=== PATIENT | female | born 1950 | race Caucasian/White ===

== ENCOUNTER 2016-11-10 02:20 | Inpatient (IN) | payer MEDICAID, MEDICARE ==
[~2016-11-10] VITALS: Ht 167.6 cm; Wt 64.9 kg
[2016-11-10] VITALS (27 sets, daily range): BP systolic 76–161; BP diastolic 37–104; PULSE 76–93; RESP 16–29; TEMP 96.7–97.9; O2SAT 91–98
[2016-11-10] MEDS ORDERED: NS 500 ML IV SCH (02:27)
[2016-11-10 02:52] LABS: HEMOGLOBIN 10.1 g/dL (12.0-16.0); RED CELL DISTRIBUTION WIDTH 21.4 % (9.0-15.0)
[2016-11-10 03:05] LABS: INR 1.1 (0.8-1.2); PROTHROMBIN TIME 11.9 SECS (9.5-12.5)
[2016-11-10 03:10] LABS: ALBUMIN 2.2 g/dL (3.4-4.8); CALCIUM 11.3 mg/dL (8.4-11.0); CREATININE 3.54 mg/dL (0.55-1.30); POTASSIUM 4.6 mmol/L (3.5-5.1); TOTAL BILIRUBIN 0.3 mg/dL (0.0-1.0); TOTAL PROTEIN, SERUM 8.7 g/dL (6.4-8.3)
[2016-11-10 03:15] LABS: HEMATOCRIT 35.5 % (36-48); MEAN CORPUSCULAR HEMOGLOBIN 27 pg (27-31); MEAN CORPUSCULAR HGB CONC 28 % (32-36); MEAN CORPUSCULAR VOLUME 97 fL (79.0-98.0); PLATELET COUNT (AUTO) 89 K/uL (130-430); RED BLOOD CELL COUNT(AUTO) 3.68 MIL/uL (4.2-6.2); WHITE BLOOD COUNT (AUTO) 23.5 K/uL (4.8-10.8)
[2016-11-10] MEDS ORDERED: NACL 0.9% 1,000 ML IV ONE ×3 (04:00→18:45)
[2016-11-10] MEDS ORDERED: INSULIN REGULAR, HUMAN 10 UNITS/0.1 ML INJ IVP ONE (04:00)
[2016-11-10 04:01] LABS: BILIRUBIN,URINE NEGATIVE (NEGATIVE); BLOOD, URINE NEGATIVE (NEGATIVE); CLARITY/URINE CLEAR (CLEAR); COLOR,URINE YELLOW (YELLOW); GLUCOSE,URINE 3+ (NEGATIVE); KETONES,URINE NEGATIVE (NEGATIVE); LEUKOCYTE ESTERASE ,URINE NEGATIVE (NEGATIVE); NITRITE, URINE NEGATIVE (NEGATIVE); PH,URINE 5.5 (5.0-8.0); PROTEIN URINE TRACE (NEGATIVE); UROBILINOGEN,URINE 0.2 (0.2-1.0)
[2016-11-10 04:07] LABS: BLOOD GAS PH 7.301 (7.350-7.450)
[2016-11-10 04:08] LABS: ABG TOTAL HEMOGLOBIN 9.9 G/dL (12.0-18.0); BLOOD GAS BASE EXCESS -3.3 mmol/L (-3.0-3.0); BLOOD GAS COHb% 0.5 % (0.5-1.5); BLOOD GAS HHB 7.1 % (0.0-6.0); BLOOD O2Hb% 92.2 % (94.0-97.0)
[2016-11-10] MEDS ORDERED: cefTRIAXone 1 GM IVPB PREMIX 50 ML IV ONE (04:15)
[2016-11-10 04:38] LABS: BAND % (MANUAL) 13 % (0-6); BASOPHILS % (MANUAL) 0 % (0-2); EOSINOPHILS % (MANUAL) 0 % (0-7); LYMPHOCYTES % (MANUAL) 3 % (20-46); MONOCYTES % (MANUAL) 1 % (0-11)
[2016-11-10 04:50] LABS: BACTERIA,URINE FEW /HPF (None Seen); RBC,URINE 0-3 /HPF (0-3)
[2016-11-10 04:51] LABS: MUCUS,URINE 1+ /LPF (None Seen); URINE AMORPHOUS URATE 1+ /HPF (None Seen)
[2016-11-10] MEDS ORDERED: DULR10 RC (05:02)
[2016-11-10] MEDS ORDERED: LORA-258 PO (05:02)
[2016-11-10] MEDS ORDERED: ZIN220 PO (05:02)
[2016-11-10] MEDS ORDERED: TYLL650 PO (05:02)
[2016-11-10] MEDS ORDERED: ASCO500S2 (05:02)
[2016-11-10] MEDS ORDERED: SYN75 PO ×2 (05:02)
[2016-11-10] MEDS ORDERED: CAT.1 PO (05:02)
[2016-11-10] MEDS ORDERED: [UNRECOGNIZED DRUG - CODE] PO (05:02)
[2016-11-10] MEDS ORDERED: SENN8.8S13 PO (05:02)
[2016-11-10] MEDS ORDERED: LACT1CAP7 PO (05:02)
[2016-11-10] MEDS ORDERED: NA P118E RC (05:02)
[2016-11-10] MEDS ORDERED: MAGN400O4 PO (05:02)
[2016-11-10] MEDS ORDERED: OMEP20CA10 PO (05:02)
[2016-11-10] MEDS ORDERED: ALBU2.5V7 INH ×2 (05:02)
[2016-11-10] MEDS ORDERED: D5W 1,000 ML IV ONE (06:00)
[2016-11-10] MEDS ORDERED: INSULIN REGULAR, HUMAN 100 UNITS in NS 99 ML IV PRN ×4 (07:00→10:45)
[2016-11-10 07:41] LABS: HEMATOCRIT 30.5 % (36-48); HEMOGLOBIN 9.2 g/dL (12.0-16.0); MEAN CORPUSCULAR VOLUME 97 fL (79.0-98.0); RED BLOOD CELL COUNT(AUTO) 3.14 MIL/uL (4.2-6.2); WHITE BLOOD COUNT (AUTO) 26.9 K/uL (4.8-10.8)
[2016-11-10 07:42] LABS: CALCIUM 10.4 mg/dL (8.4-11.0); CREATININE 3.15 mg/dL (0.55-1.30); MEAN CORPUSCULAR HEMOGLOBIN 29 pg (27-31); MEAN CORPUSCULAR HGB CONC 30 % (32-36)
[2016-11-10 07:43] LABS: TOTAL BILIRUBIN 0.2 mg/dL (0.0-1.0); TOTAL PROTEIN, SERUM 8.2 g/dL (6.4-8.3)
[2016-11-10] MEDS ORDERED: LEVOTHYROXINE SODIUM 0.075 MG TABLET GT ONE (07:45)
[2016-11-10] MEDS ORDERED: HEPARIN SODIUM,PORCINE 5000 UNITS/ML VIAL IVP ONE (08:00)
[2016-11-10] MEDS ORDERED: HEPARIN SODIUM,PORCINE 5000 UNITS/ML VIAL ONE (08:35)
[2016-11-10 08:40] LABS: BAND % (MANUAL) 3 % (0-6); BASOPHILS % (MANUAL) 0 % (0-2); EOSINOPHILS % (MANUAL) 0 % (0-7); LYMPHOCYTES % (MANUAL) 3 % (20-46); MONOCYTES % (MANUAL) 2 % (0-11)
[2016-11-10 08:43] LABS: PLATELET COUNT (AUTO) 120 K/uL (130-430)
[2016-11-10] MEDS: INSULIN REGULAR, HUMAN 100 UNITS in NS 99 ML IV PRN ×2 (09:00)
[2016-11-10] MEDS: LACTOBACILLUS RHAMNOSUS GG 1 CAP CAPSULE GT SCH ×2 (09:32→21:11)
[2016-11-10] MEDS: DOCUSATE SODIUM 100 MG/10 ML UDC GT SCH ×2 (09:32→21:11)
[2016-11-10] MEDS: PANTOPRAZOLE SODIUM 40 MG/VIAL (PROTONIX) IVP SCH (09:32)
[2016-11-10] MEDS: TEARS ARTIFICIAL 15 ML DROPS OP SCH ×4 (09:39→21:06)
[2016-11-10 10:24] LABS: INR 1.1 (0.8-1.2); PROTHROMBIN TIME 12.2 SECS (9.5-12.5)
[2016-11-10 11:18] LABS: CALCIUM 10.6 mg/dL (8.4-11.0); CREATININE 2.93 mg/dL (0.55-1.30); PHOSPHORUS 4.9 mg/dL (2.7-4.5); POTASSIUM 3.7 mmol/L (3.5-5.1)
[2016-11-10 11:24] LABS: ABG TOTAL HEMOGLOBIN 9.4 G/dL (12.0-18.0); BLOOD GAS BASE EXCESS -3.7 mmol/L (-3.0-3.0); BLOOD GAS PH 7.314 (7.350-7.450); BLOOD O2Hb% 90.8 % (94.0-97.0)
[2016-11-10 11:25] LABS: BLOOD GAS COHb% 0.8 % (0.5-1.5); BLOOD GAS HHB 8.2 % (0.0-6.0)
[2016-11-10] MEDS: ALBUTEROL SULFATE 0.083% 2.5 MG/3 ML VIAL.NEB INH SCH ×4 (11:50→23:28)
[2016-11-10] MEDS: 0.45% NACL 1,000 ML IV SCH ×3 (12:05→20:02)
[2016-11-10] MEDS: NOREPINEPHRINE BITARTRATE 4 MG in NS 246 ML IV PRN ×2 (15:00→22:03)
[2016-11-10] MEDS ORDERED: NOREPINEPHRINE 4 MG/4 ML VIAL IV ONE (15:21)
[2016-11-10 16:52] LABS: POTASSIUM 3.2 mmol/L (3.5-5.1)
[2016-11-10 17:13] LABS: CALCIUM 9.9 mg/dL (8.4-11.0); CREATININE 2.5 mg/dL (0.55-1.30); PHOSPHORUS 3.8 mg/dL (2.7-4.5)
[2016-11-10 18:23] LABS: ABG TOTAL HEMOGLOBIN 9.7 G/dL (12.0-18.0); BLOOD GAS PH 7.302 (7.350-7.450)
[2016-11-10 18:24] LABS: BLOOD GAS COHb% 0.4 % (0.5-1.5); BLOOD GAS HHB 10.8 % (0.0-6.0); BLOOD O2Hb% 88.4 % (94.0-97.0)
[2016-11-10] MEDS ORDERED: POTASSIUM CHLORIDE 40 MEQ in 0.45% NS 250 ML IV ONE (19:45)
[2016-11-10] MEDS ORDERED: KCL 40 mEq in 100 mL (PREMIX) 100 ML IV ONE (20:33)
[2016-11-10 23:40] LABS: CALCIUM 9.4 mg/dL (8.4-11.0); CREATININE 2.09 mg/dL (0.55-1.30); PHOSPHORUS 3.5 mg/dL (2.7-4.5); POTASSIUM 3.8 mmol/L (3.5-5.1)
[2016-11-11] VITALS (34 sets, daily range): BP systolic 84–159; BP diastolic 36–110; PULSE 79–104; RESP 20–27; TEMP 97.6–98.4; O2SAT 97–100
[2016-11-11] MEDS: 0.45% NACL 1,000 ML IV SCH ×3 (01:03→15:15)
[2016-11-11 03:04] LABS: CALCIUM 9.4 mg/dL (8.4-11.0); CREATININE 2.05 mg/dL (0.55-1.30); POTASSIUM 4.5 mmol/L (3.5-5.1)
[2016-11-11 03:07] LABS: ALBUMIN 1.8 g/dL (3.4-4.8); PHOSPHORUS 3.2 mg/dL (2.7-4.5); TOTAL BILIRUBIN 0.2 mg/dL (0.0-1.0); TOTAL PROTEIN, SERUM 6.9 g/dL (6.4-8.3)
[2016-11-11 03:33] LABS: FREE T4 (FREE THYROXINE) 0.5 ng/dL (0.6-1.6); THYROID STIMULATING HORMONE 2.21 uIu/mL (0.34-4.82)
[2016-11-11] MEDS: ALBUTEROL SULFATE 0.083% 2.5 MG/3 ML VIAL.NEB INH SCH ×6 (03:47→23:17)
[2016-11-11] MEDS: NOREPINEPHRINE BITARTRATE 4 MG in NS 246 ML IV PRN ×6 (04:27→22:48)
[2016-11-11] MEDS: LEVOTHYROXINE SODIUM 0.075 MG TABLET GT SCH (06:31)
[2016-11-11 06:46] LABS: CALCIUM 9.3 mg/dL (8.4-11.0); CREATININE 2.06 mg/dL (0.55-1.30); PHOSPHORUS 3.4 mg/dL (2.7-4.5); POTASSIUM 4.2 mmol/L (3.5-5.1)
[2016-11-11 07:00] LABS: HEMATOCRIT 29.3 % (36-48); HEMOGLOBIN 8.6 g/dL (12.0-16.0); MEAN CORPUSCULAR HEMOGLOBIN 28 pg (27-31); MEAN CORPUSCULAR HGB CONC 29 % (32-36); MEAN CORPUSCULAR VOLUME 95 fL (79.0-98.0); PLATELET COUNT (AUTO) 86 K/uL (130-430); RED BLOOD CELL COUNT(AUTO) 3.07 MIL/uL (4.2-6.2); RED CELL DISTRIBUTION WIDTH 19.6 % (9.0-15.0)
[2016-11-11 07:48] LABS: BLOOD GAS PH 7.305 (7.350-7.450)
[2016-11-11 07:50] LABS: BLOOD GAS BASE EXCESS -8.8 mmol/L (-3.0-3.0); BLOOD GAS COHb% 0.8 % (0.5-1.5); BLOOD GAS HHB 4.6 % (0.0-6.0); BLOOD O2Hb% 94.1 % (94.0-97.0)
[2016-11-11 08:01] LABS: BAND % (MANUAL) 15 % (0-6); BASOPHILS % (MANUAL) 0 % (0-2); EOSINOPHILS % (MANUAL) 0 % (0-7); LYMPHOCYTES % (MANUAL) 5 % (20-46); MONOCYTES % (MANUAL) 1 % (0-11)
[2016-11-11] MEDS: DOCUSATE SODIUM 100 MG/10 ML UDC GT SCH ×2 (09:00→21:31)
[2016-11-11] MEDS ORDERED: cefTRIAXone 1 GM IVPB PREMIX 50 ML IV SCH (09:00)
[2016-11-11] MEDS: TEARS ARTIFICIAL 15 ML DROPS OP SCH ×4 (09:01→21:32)
[2016-11-11] MEDS: PANTOPRAZOLE SODIUM 40 MG/VIAL (PROTONIX) IVP SCH (09:01)
[2016-11-11] MEDS: LACTOBACILLUS RHAMNOSUS GG 1 CAP CAPSULE GT SCH ×2 (09:01→21:32)
[2016-11-11] MEDS ORDERED: VANCOMYCIN HCL 750 MG in NS 250 ML IV SCH (11:15)
[2016-11-11] MEDS ORDERED: VANCOMYCIN HCL 1,000 MG in NS 250 ML IV ONE (12:00)
[2016-11-11] MEDS: PIPERACILLIN/TAZO 3.375/DEX-IS 50 ML IV SCH ×2 (12:11→17:08)
[2016-11-11] MEDS: FLUCONAZOLE 200 mg/ NS 100 ML IV SCH (12:19)
[2016-11-11 12:51] LABS: CALCIUM 9.1 mg/dL (8.4-11.0); CREATININE 1.86 mg/dL (0.55-1.30); PHOSPHORUS 3.3 mg/dL (2.7-4.5); POTASSIUM 4.2 mmol/L (3.5-5.1)
[2016-11-11] MEDS: metroNIDAZOLE 250 mg/NS 50 ML IV SCH ×2 (14:31→21:32)
[2016-11-11 18:26] LABS: CALCIUM 8.9 mg/dL (8.4-11.0); CREATININE 1.77 mg/dL (0.55-1.30); PHOSPHORUS 3.9 mg/dL (2.7-4.5); POTASSIUM 4.2 mmol/L (3.5-5.1)
[2016-11-12] VITALS (34 sets, daily range): BP systolic 81–143; BP diastolic 36–89; PULSE 72–105; RESP 11–25; TEMP 97.7–98.9; O2SAT 99–100; Ht 167.6 cm; Wt 64.9 kg
[2016-11-12] MEDS: PIPERACILLIN/TAZO 3.375/DEX-IS 50 ML IV SCH ×4 (00:09→17:49)
[2016-11-12] MEDS: NOREPINEPHRINE BITARTRATE 4 MG in NS 246 ML IV PRN ×4 (02:07→19:25)
[2016-11-12] MEDS: ALBUTEROL SULFATE 0.083% 2.5 MG/3 ML VIAL.NEB INH SCH ×6 (03:50→23:24)
[2016-11-12 04:31] LABS: CALCIUM 9.2 mg/dL (8.4-11.0); CREATININE 1.57 mg/dL (0.55-1.30); PHOSPHORUS 4.8 mg/dL (2.7-4.5); POTASSIUM 3.1 mmol/L (3.5-5.1)
[2016-11-12 04:54] LABS: BASOPHILS # (AUTO) 0.1 K/uL (0.0-0.2); BASOPHILS % (AUTO) 0.2 % (0.0-2.0); EOSINOPHILS # (AUTO) 0.1 K/uL (0.0-0.4); EOSINOPHILS % (AUTO) 0.3 % (0.0-4.0); HEMATOCRIT 25.4 % (36-48); HEMOGLOBIN 7.5 g/dL (12.0-16.0); LYMPHOCYTES % (AUTO) 3.5 % (20.5-51.5); MEAN CORPUSCULAR HEMOGLOBIN 28 pg (27-31); MEAN CORPUSCULAR HGB CONC 30 % (32-36); MEAN CORPUSCULAR VOLUME 94 fL (79.0-98.0); MONOCYTES # (AUTO) 0.1 K/uL (0.0-1.0); MONOCYTES % (AUTO) 0.3 % (1.7-9.3); NEUTROPHILS # (AUTO) 26.3 K/uL (1.8-7.7); NEUTROPHILS % (AUTO) 95.7 % (40.0-70.0); PLATELET COUNT (AUTO) 107 K/uL (130-430); RED BLOOD CELL COUNT(AUTO) 2.71 MIL/uL (4.2-6.2); RED CELL DISTRIBUTION WIDTH 18.9 % (9.0-15.0); WHITE BLOOD COUNT (AUTO) 27.6 K/uL (4.8-10.8)
[2016-11-12] MEDS: metroNIDAZOLE 250 mg/NS 50 ML IV SCH ×3 (05:08→22:00)
[2016-11-12] MEDS ORDERED: NOREPINEPHRINE 4 MG/4 ML VIAL IV ONE (05:50)
[2016-11-12] MEDS: LEVOTHYROXINE SODIUM 0.075 MG TABLET GT SCH (06:11)
[2016-11-12] MEDS: 0.45% NACL 1,000 ML IV SCH ×2 (07:00→09:38)
[2016-11-12 08:10] LABS: ABG TOTAL HEMOGLOBIN 7.6 G/dL (12.0-18.0); BLOOD GAS BASE EXCESS -10.9 mmol/L (-3.0-3.0)
[2016-11-12 08:11] LABS: BLOOD GAS COHb% 1.2 % (0.5-1.5); BLOOD GAS HHB 0.8 % (0.0-6.0); BLOOD O2Hb% 97.3 % (94.0-97.0)
[2016-11-12] MEDS: TEARS ARTIFICIAL 15 ML DROPS OP SCH ×4 (09:03→22:23)
[2016-11-12] MEDS: DOCUSATE SODIUM 100 MG/10 ML UDC GT SCH ×2 (09:03→21:00)
[2016-11-12] MEDS: LACTOBACILLUS RHAMNOSUS GG 1 CAP CAPSULE GT SCH ×2 (09:03→22:22)
[2016-11-12] MEDS: PANTOPRAZOLE SODIUM 40 MG/VIAL (PROTONIX) IVP SCH (09:04)
[2016-11-12] MEDS ORDERED: POTASSIUM CHLORIDE 20 MEQ TAB.PRT.SR GT ONE (09:30)
[2016-11-12] MEDS: ENOXAPARIN SODIUM 40 MG/0.4 ML SYRINGE SUBCUT SCH (10:20)
[2016-11-12] MEDS: FLUCONAZOLE 200 mg/ NS 100 ML IV SCH (11:13)
[2016-11-12 12:04] LABS: PHOSPHORUS 5.4 mg/dL (2.7-4.5)
[2016-11-12] MEDS: VANCOMYCIN HCL 500 MG in NS 100 ML IV SCH (12:34)
[2016-11-12] MEDS: INSULIN REGULAR, HUMAN 100 UNITS in NS 99 ML IV PRN ×4 (16:21→20:38)
[2016-11-12] MEDS ORDERED: INSULIN NPH 100 UNITS/ML 10 ML VIAL SUBCUT SCH (17:00)
[2016-11-12] MEDS ORDERED: POTASSIUM CHLORIDE 20 MEQ TAB.PRT.SR NG ONE (17:30)
[2016-11-12 19:52] LABS: PHOSPHORUS 5.6 mg/dL (2.7-4.5)
[2016-11-12] MEDS ORDERED: metroNIDAZOLE 500 mg/NS 100 ML IV ONE (22:50)
[2016-11-13] VITALS (38 sets, daily range): BP systolic 94–153; BP diastolic 44–81; PULSE 63–92; RESP 9–30; TEMP 97.2–98.4; O2SAT 97–100
[2016-11-13] MEDS: 0.45% NACL 1,000 ML IV SCH (00:13)
[2016-11-13] MEDS: NOREPINEPHRINE BITARTRATE 4 MG in NS 246 ML IV PRN ×4 (00:14→15:04)
[2016-11-13] MEDS: PIPERACILLIN/TAZO 3.375/DEX-IS 50 ML IV SCH ×2 (00:14→06:01)
[2016-11-13 03:36] LABS: CALCIUM 8.8 mg/dL (8.4-11.0); CREATININE 1.44 mg/dL (0.55-1.30); PHOSPHORUS 5.3 mg/dL (2.7-4.5)
[2016-11-13] MEDS: ALBUTEROL SULFATE 0.083% 2.5 MG/3 ML VIAL.NEB INH SCH ×6 (03:47→23:17)
[2016-11-13 03:50] LABS: POTASSIUM 2.5 mmol/L (3.5-5.1)
[2016-11-13] MEDS ORDERED: POTASSIUM CHLORIDE 40 MEQ in 0.45% NS 250 ML IV ONE ×2 (04:25→22:00)
[2016-11-13] MEDS ORDERED: 0.45% NACL 1,000 ML IV SCH (04:25)
[2016-11-13] MEDS ORDERED: POTASSIUM CHLORIDE 20 MEQ/PKT PACKET GT ONE ×2 (05:00→22:00)
[2016-11-13] MEDS ORDERED: KCL 40 mEq in 100 mL (PREMIX) 100 ML IV ONE ×4 (05:13→22:27)
[2016-11-13] MEDS: LEVOTHYROXINE SODIUM 0.075 MG TABLET GT SCH (05:58)
[2016-11-13] MEDS ORDERED: POTASSIUM CHLORIDE 20 MEQ TAB.PRT.SR ONE (06:02)
[2016-11-13 06:36] LABS: HEMATOCRIT 22.1 % (36-48); MEAN CORPUSCULAR HEMOGLOBIN 28 pg (27-31); MEAN CORPUSCULAR HGB CONC 30 % (32-36); MEAN CORPUSCULAR VOLUME 94 fL (79.0-98.0); PLATELET COUNT (AUTO) 80 K/uL (130-430); RED BLOOD CELL COUNT(AUTO) 2.36 MIL/uL (4.2-6.2); RED CELL DISTRIBUTION WIDTH 18.1 % (9.0-15.0); WHITE BLOOD COUNT (AUTO) 29.4 K/uL (4.8-10.8)
[2016-11-13 06:56] LABS: HEMOGLOBIN 6.7 g/dL (12.0-16.0)
[2016-11-13] MEDS ORDERED: INSULIN NPH 100 UNITS/ML 10 ML VIAL SUBCUT SCH (07:00)
[2016-11-13] MEDS: metroNIDAZOLE 250 mg/NS 50 ML IV SCH ×3 (07:47→21:02)
[2016-11-13] MEDS: INSULIN ASPART 100 UNITS/ML, 10 ML VIAL (NovoLOG) SUBCUT PRN ×4 (08:16→19:01)
[2016-11-13 08:27] LABS: ATYPICAL LYMPHOCYTES % 0 % (0-0); BAND % (MANUAL) 8 % (0-6); BASOPHILS % (MANUAL) 0 % (0-2); EOSINOPHILS % (MANUAL) 1 % (0-7); LYMPHOCYTES % (MANUAL) 3 % (20-46); MONOCYTES % (MANUAL) 1 % (0-11)
[2016-11-13 08:31] LABS: ABG TOTAL HEMOGLOBIN 6.6 G/dL (12.0-18.0); BLOOD GAS BASE EXCESS -12.6 mmol/L (-3.0-3.0); BLOOD GAS COHb% 1.1 % (0.5-1.5); BLOOD O2Hb% 96.2 % (94.0-97.0)
[2016-11-13 08:32] LABS: BLOOD GAS HHB 2.4 % (0.0-6.0)
[2016-11-13] MEDS: DOCUSATE SODIUM 100 MG/10 ML UDC GT SCH ×2 (09:00→20:54)
[2016-11-13] MEDS: BALSAM PERU/CASTOR OIL 60 GM OINT...G. TP SCH (09:00)
[2016-11-13] MEDS: PANTOPRAZOLE SODIUM 40 MG/VIAL (PROTONIX) IVP SCH (09:05)
[2016-11-13] MEDS: LACTOBACILLUS RHAMNOSUS GG 1 CAP CAPSULE GT SCH ×2 (09:05→20:54)
[2016-11-13] MEDS: ENOXAPARIN SODIUM 40 MG/0.4 ML SYRINGE SUBCUT SCH (09:05)
[2016-11-13] MEDS: TEARS ARTIFICIAL 15 ML DROPS OP SCH ×4 (09:07→21:02)
[2016-11-13] MEDS ORDERED: SODIUM BICARBONATE 8.4% JECT 50 MEQ/50 ML SYRINGE IVP ONE ×2 (11:00→15:15)
[2016-11-13] MEDS: FLUCONAZOLE 200 mg/ NS 100 ML IV SCH (11:22)
[2016-11-13 11:39] LABS: PHOSPHORUS 5.2 mg/dL (2.7-4.5); POTASSIUM 3.2 mmol/L (3.5-5.1)
[2016-11-13] MEDS: VANCOMYCIN HCL 500 MG in NS 100 ML IV SCH (12:26)
[2016-11-13] MEDS ORDERED: SODIUM BICARBONATE 8.4% JECT 50 MEQ/50 ML SYRINGE ONE (13:44)
[2016-11-13] MEDS ORDERED: SODIUM BICARBONATE 8.4% JECT 50 MEQ/50 ML SYRINGE IVP SCH (14:40)
[2016-11-13] MEDS ORDERED: D5W 100 ML IV ONE (16:00)
[2016-11-13] MEDS: INSULIN NPH 100 UNITS/ML 10 ML VIAL SUBCUT SCH (19:00)
[2016-11-13] MEDS: CEFEPIME 1 GM in D5W 50 ML IV SCH (21:01)
[2016-11-13 21:15] LABS: ANION GAP 11 (5-15); CALCIUM 8.4 mg/dL (8.4-11.0); CREATININE 1.26 mg/dL (0.55-1.30); GLUCOSE 213 mg/dL (70-99); PHOSPHORUS 4.2 mg/dL (2.7-4.5); UREA NITROGEN, BLOOD 59 mg/dL (8-21)
[2016-11-13 21:47] LABS: CHLORIDE 134 mmol/L (98-107); POTASSIUM 2.8 mmol/L (3.5-5.1); SODIUM SERUM 164 mmol/L (136-145)
[2016-11-13] MEDS: KCL 40 mEq in D5W 1000 mL 1,000 ML IV SCH (23:08)
[2016-11-14] VITALS (36 sets, daily range): BP systolic 76–233; BP diastolic 44–89; PULSE 63–96; RESP 6–28; TEMP 97–97.6; O2SAT 96–100
[2016-11-14] MEDS: INSULIN ASPART 100 UNITS/ML, 10 ML VIAL (NovoLOG) SUBCUT PRN ×7 (00:05→22:44)
[2016-11-14] MEDS: NOREPINEPHRINE BITARTRATE 4 MG in NS 246 ML IV PRN ×4 (03:28→20:31)
[2016-11-14] MEDS: ALBUTEROL SULFATE 0.083% 2.5 MG/3 ML VIAL.NEB INH SCH ×6 (03:43→22:26)
[2016-11-14] MEDS: KCL 40 mEq in D5W 1000 mL 1,000 ML IV SCH ×3 (06:11→18:00)
[2016-11-14] MEDS: LEVOTHYROXINE SODIUM 0.075 MG TABLET GT SCH (06:12)
[2016-11-14] MEDS: metroNIDAZOLE 250 mg/NS 50 ML IV SCH ×3 (06:12→22:02)
[2016-11-14] MEDS: INSULIN NPH 100 UNITS/ML 10 ML VIAL SUBCUT SCH ×2 (06:33→17:11)
[2016-11-14 06:47] LABS: BASOPHILS % (AUTO) 0.1 % (0.0-2.0); EOSINOPHILS # (AUTO) 0.2 K/uL (0.0-0.4); EOSINOPHILS % (AUTO) 1.1 % (0.0-4.0); HEMATOCRIT 30.1 % (36-48); HEMOGLOBIN 9.7 g/dL (12.0-16.0); LYMPHOCYTES # (AUTO) 0.5 K/uL (1.0-5.5); LYMPHOCYTES % (AUTO) 2.3 % (20.5-51.5); MEAN CORPUSCULAR HEMOGLOBIN 29 pg (27-31); MEAN CORPUSCULAR HGB CONC 32 % (32-36); MEAN CORPUSCULAR VOLUME 91 fL (79.0-98.0); MONOCYTES # (AUTO) 0.1 K/uL (0.0-1.0); MONOCYTES % (AUTO) 0.5 % (1.7-9.3); NEUTROPHILS # (AUTO) 19.2 K/uL (1.8-7.7); RED BLOOD CELL COUNT(AUTO) 3.32 MIL/uL (4.2-6.2); RED CELL DISTRIBUTION WIDTH 18.2 % (9.0-15.0)
[2016-11-14 07:07] LABS: PLATELET COUNT (AUTO) 41 K/uL (130-430)
[2016-11-14 07:22] LABS: CALCIUM 8.6 mg/dL (8.4-11.0); CREATININE 1.26 mg/dL (0.55-1.30); PHOSPHORUS 4.1 mg/dL (2.7-4.5); POTASSIUM 3.7 mmol/L (3.5-5.1)
[2016-11-14] MEDS: DOCUSATE SODIUM 100 MG/10 ML UDC GT SCH ×2 (09:00→20:10)
[2016-11-14] MEDS: BALSAM PERU/CASTOR OIL 60 GM OINT...G. TP SCH (09:00)
[2016-11-14] MEDS: LACTOBACILLUS RHAMNOSUS GG 1 CAP CAPSULE GT SCH ×2 (10:35→20:10)
[2016-11-14] MEDS: PANTOPRAZOLE SODIUM 40 MG/VIAL (PROTONIX) IVP SCH (10:36)
[2016-11-14] MEDS: TEARS ARTIFICIAL 15 ML DROPS OP SCH ×4 (10:36→20:11)
[2016-11-14] MEDS: CEFEPIME 1 GM in D5W 50 ML IV SCH ×2 (10:36→20:10)
[2016-11-14] MEDS: ENOXAPARIN SODIUM 40 MG/0.4 ML SYRINGE SUBCUT SCH (10:37)
[2016-11-14] MEDS: FLUCONAZOLE 200 mg/ NS 100 ML IV SCH (10:37)
[2016-11-14] MEDS: VANCOMYCIN HCL 500 MG in NS 100 ML IV SCH (12:58)
[2016-11-14 18:30] LABS: CALCIUM 8.6 mg/dL (8.4-11.0); CREATININE 1.14 mg/dL (0.55-1.30); PHOSPHORUS 3.8 mg/dL (2.7-4.5); POTASSIUM 3.9 mmol/L (3.5-5.1)
[2016-11-15] VITALS (36 sets, daily range): BP systolic 83–130; BP diastolic 21–78; PULSE 69–118; RESP 5–35; TEMP 97.9–99; O2SAT 93–100
[2016-11-15] MEDS: NOREPINEPHRINE BITARTRATE 4 MG in NS 246 ML IV PRN ×3 (02:00→14:15)
[2016-11-15] MEDS: ALBUTEROL SULFATE 0.083% 2.5 MG/3 ML VIAL.NEB INH SCH ×6 (02:54→23:49)
[2016-11-15] MEDS: INSULIN ASPART 100 UNITS/ML, 10 ML VIAL (NovoLOG) SUBCUT PRN ×4 (03:50→22:54)
[2016-11-15] MEDS: metroNIDAZOLE 250 mg/NS 50 ML IV SCH ×3 (06:07→21:54)
[2016-11-15] MEDS: LEVOTHYROXINE SODIUM 0.075 MG TABLET GT SCH (06:07)
[2016-11-15] MEDS: KCL 40 mEq in D5W 1000 mL 1,000 ML IV SCH ×2 (06:07→21:51)
[2016-11-15] MEDS: INSULIN NPH 100 UNITS/ML 10 ML VIAL SUBCUT SCH ×2 (06:13→17:00)
[2016-11-15 06:37] LABS: BASOPHILS # (AUTO) 0.1 K/uL (0.0-0.2); BASOPHILS % (AUTO) 0.3 % (0.0-2.0); EOSINOPHILS # (AUTO) 0.2 K/uL (0.0-0.4); EOSINOPHILS % (AUTO) 1.1 % (0.0-4.0); HEMATOCRIT 31.8 % (36-48); HEMOGLOBIN 10.4 g/dL (12.0-16.0); LYMPHOCYTES # (AUTO) 0.6 K/uL (1.0-5.5); MEAN CORPUSCULAR HEMOGLOBIN 30 pg (27-31); MEAN CORPUSCULAR HGB CONC 33 % (32-36); MEAN CORPUSCULAR VOLUME 91 fL (79.0-98.0); MONOCYTES # (AUTO) 0.1 K/uL (0.0-1.0); MONOCYTES % (AUTO) 0.4 % (1.7-9.3); NEUTROPHILS # (AUTO) 19.6 K/uL (1.8-7.7); NEUTROPHILS % (AUTO) 95.2 % (40.0-70.0); RED BLOOD CELL COUNT(AUTO) 3.48 MIL/uL (4.2-6.2); WHITE BLOOD COUNT (AUTO) 20.6 K/uL (4.8-10.8)
[2016-11-15 07:17] LABS: CALCIUM 8.6 mg/dL (8.4-11.0); CREATININE 1.13 mg/dL (0.55-1.30); POTASSIUM 4.4 mmol/L (3.5-5.1)
[2016-11-15 08:03] LABS: BLOOD GAS PH 7.343 (7.350-7.450)
[2016-11-15 08:04] LABS: ABG TOTAL HEMOGLOBIN 9.9 G/dL (12.0-18.0); BLOOD GAS BASE EXCESS -12.2 mmol/L (-3.0-3.0); BLOOD GAS COHb% 0.4 % (0.5-1.5); BLOOD GAS HHB 5.8 % (0.0-6.0); BLOOD O2Hb% 93.3 % (94.0-97.0)
[2016-11-15] MEDS ORDERED: NOREPINEPHRINE 4 MG/4 ML VIAL IV ONE (08:43)
[2016-11-15 09:02] LABS: PLATELET COUNT (AUTO) 41 K/uL (130-430)
[2016-11-15] MEDS: LACTOBACILLUS RHAMNOSUS GG 1 CAP CAPSULE GT SCH ×2 (09:15→21:52)
[2016-11-15] MEDS: DOCUSATE SODIUM 100 MG/10 ML UDC GT SCH ×2 (09:15→21:00)
[2016-11-15] MEDS: ENOXAPARIN SODIUM 40 MG/0.4 ML SYRINGE SUBCUT SCH (09:16)
[2016-11-15] MEDS: PANTOPRAZOLE SODIUM 40 MG/VIAL (PROTONIX) IVP SCH (09:16)
[2016-11-15] MEDS: CEFEPIME 1 GM in D5W 50 ML IV SCH ×2 (09:18→21:53)
[2016-11-15] MEDS: TEARS ARTIFICIAL 15 ML DROPS OP SCH ×4 (09:19→21:54)
[2016-11-15] MEDS: BALSAM PERU/CASTOR OIL 60 GM OINT...G. TP SCH (09:20)
[2016-11-15] MEDS: FLUCONAZOLE 200 mg/ NS 100 ML IV SCH (11:28)
[2016-11-15] MEDS: VANCOMYCIN HCL 500 MG in NS 100 ML IV SCH (12:33)
[2016-11-15] MEDS ORDERED: LORazepam 2 MG/ML VIAL IVP PRN (13:00)
[2016-11-15] MEDS ORDERED: MORPHINE 2 MG/ML INJ. SYRINGE IVP PRN (13:00)
[2016-11-15] MEDS ORDERED: SODIUM BICARBONATE 8.4% JECT 50 MEQ/50 ML SYRINGE ONE (13:10)
[2016-11-15] MEDS ORDERED: SODIUM BICARBONATE 8.4% JECT 50 MEQ/50 ML SYRINGE IVP ONE ×2 (13:15→14:00)
[2016-11-15] MEDS: SODIUM BICARBONATE 650 MG TABLET PO SCH ×2 (16:50→21:52)
[2016-11-16] VITALS (37 sets, daily range): BP systolic 88–141; BP diastolic 51–103; PULSE 75–100; RESP 5–17; TEMP 97.4–98.9; O2SAT 95–100
[2016-11-16] MEDS ORDERED: NOREPINEPHRINE 4 MG/4 ML VIAL IV ONE ×2 (00:37→06:08)
[2016-11-16] MEDS: NOREPINEPHRINE BITARTRATE 4 MG in NS 246 ML IV PRN ×4 (01:03→20:14)
[2016-11-16] MEDS: INSULIN ASPART 100 UNITS/ML, 10 ML VIAL (NovoLOG) SUBCUT PRN ×6 (02:51→23:53)
[2016-11-16] MEDS: ALBUTEROL SULFATE 0.083% 2.5 MG/3 ML VIAL.NEB INH SCH ×5 (02:57→23:28)
[2016-11-16] MEDS: LEVOTHYROXINE SODIUM 0.075 MG TABLET GT SCH (06:12)
[2016-11-16 06:28] LABS: CALCIUM 8.6 mg/dL (8.4-11.0); CREATININE 0.91 mg/dL (0.55-1.30); POTASSIUM 3.9 mmol/L (3.5-5.1)
[2016-11-16] MEDS: INSULIN NPH 100 UNITS/ML 10 ML VIAL SUBCUT SCH ×2 (06:34→17:02)
[2016-11-16] MEDS: metroNIDAZOLE 250 mg/NS 50 ML IV SCH ×3 (06:35→21:55)
[2016-11-16] MEDS: KCL 40 mEq in D5W 1000 mL 1,000 ML IV SCH ×2 (06:36→20:22)
[2016-11-16 06:47] LABS: INR 1.4 (0.8-1.2); PROTHROMBIN TIME 15.1 SECS (9.5-12.5)
[2016-11-16 07:11] LABS: HEMATOCRIT 27.4 % (36-48); MEAN CORPUSCULAR HEMOGLOBIN 30 pg (27-31); MEAN CORPUSCULAR HGB CONC 34 % (32-36); MEAN CORPUSCULAR VOLUME 89 fL (79.0-98.0); PLATELET COUNT (AUTO) 55 K/uL (130-430); RED BLOOD CELL COUNT(AUTO) 3.07 MIL/uL (4.2-6.2); RED CELL DISTRIBUTION WIDTH 18.7 % (9.0-15.0); WHITE BLOOD COUNT (AUTO) 19.2 K/uL (4.8-10.8)
[2016-11-16 07:25] LABS: HEMOGLOBIN 9.2 g/dL (12.0-16.0)
[2016-11-16] MEDS: LACTOBACILLUS RHAMNOSUS GG 1 CAP CAPSULE GT SCH ×2 (08:23→20:12)
[2016-11-16] MEDS: PANTOPRAZOLE SODIUM 40 MG/VIAL (PROTONIX) IVP SCH (08:24)
[2016-11-16] MEDS: CEFEPIME 1 GM in D5W 50 ML IV SCH ×2 (08:25→20:13)
[2016-11-16] MEDS: SODIUM BICARBONATE 650 MG TABLET PO SCH ×2 (08:25→20:12)
[2016-11-16] MEDS: ENOXAPARIN SODIUM 40 MG/0.4 ML SYRINGE SUBCUT SCH (08:25)
[2016-11-16] MEDS: TEARS ARTIFICIAL 15 ML DROPS OP SCH ×4 (08:26→20:19)
[2016-11-16] MEDS: DOCUSATE SODIUM 100 MG/10 ML UDC GT SCH ×2 (08:26→21:00)
[2016-11-16] MEDS: BALSAM PERU/CASTOR OIL 60 GM OINT...G. TP SCH (08:26)
[2016-11-16 10:18] LABS: ATYPICAL LYMPHOCYTES % 0 % (0-0); BAND % (MANUAL) 15 % (0-6); BASOPHILS % (MANUAL) 0 % (0-2); EOSINOPHILS % (MANUAL) 1 % (0-7); LYMPHOCYTES % (MANUAL) 4 % (20-46); MONOCYTES % (MANUAL) 0 % (0-11)
[2016-11-16 10:50] LABS: RETICULOCYTE COUNT 0.6 % (0.5-1.5)
[2016-11-16] MEDS: FLUCONAZOLE 200 mg/ NS 100 ML IV SCH (10:51)
[2016-11-16] MEDS: VANCOMYCIN HCL 500 MG in NS 100 ML IV SCH (11:13)
[2016-11-17] VITALS (35 sets, daily range): BP systolic 83–137; BP diastolic 50–83; PULSE 75–88; RESP 11–19; TEMP 97.2–98.4; O2SAT 98–100
[2016-11-17] MEDS: KCL 40 mEq in D5W 1000 mL 1,000 ML IV SCH ×3 (02:30→23:42)
[2016-11-17] MEDS: ALBUTEROL SULFATE 0.083% 2.5 MG/3 ML VIAL.NEB INH SCH ×6 (03:09→23:21)
[2016-11-17] MEDS: metroNIDAZOLE 250 mg/NS 50 ML IV SCH ×3 (06:17→21:07)
[2016-11-17] MEDS: LEVOTHYROXINE SODIUM 0.075 MG TABLET GT SCH (06:17)
[2016-11-17] MEDS: INSULIN ASPART 100 UNITS/ML, 10 ML VIAL (NovoLOG) SUBCUT PRN ×3 (06:26→17:05)
[2016-11-17 06:39] LABS: HEMATOCRIT 25.9 % (36-48); HEMOGLOBIN 8.2 g/dL (12.0-16.0); MEAN CORPUSCULAR HEMOGLOBIN 29 pg (27-31); MEAN CORPUSCULAR HGB CONC 32 % (32-36); MEAN CORPUSCULAR VOLUME 90 fL (79.0-98.0); RED BLOOD CELL COUNT(AUTO) 2.87 MIL/uL (4.2-6.2); RED CELL DISTRIBUTION WIDTH 18.3 % (9.0-15.0); WHITE BLOOD COUNT (AUTO) 8.4 K/uL (4.8-10.8)
[2016-11-17 06:55] LABS: CALCIUM 8.5 mg/dL (8.4-11.0); CREATININE 0.83 mg/dL (0.55-1.30); POTASSIUM 4.4 mmol/L (3.5-5.1)
[2016-11-17] MEDS: INSULIN NPH 100 UNITS/ML 10 ML VIAL SUBCUT SCH ×2 (07:26→17:10)
[2016-11-17] MEDS: NOREPINEPHRINE BITARTRATE 4 MG in NS 246 ML IV PRN (07:28)
[2016-11-17 07:36] LABS: PLATELET COUNT (AUTO) 31 K/uL (130-430)
[2016-11-17] MEDS: PANTOPRAZOLE SODIUM 40 MG/VIAL (PROTONIX) IVP SCH (08:07)
[2016-11-17] MEDS: ENOXAPARIN SODIUM 40 MG/0.4 ML SYRINGE SUBCUT SCH (08:08)
[2016-11-17] MEDS: DOCUSATE SODIUM 100 MG/10 ML UDC GT SCH ×2 (08:08→21:00)
[2016-11-17] MEDS: TEARS ARTIFICIAL 15 ML DROPS OP SCH ×4 (08:08→20:51)
[2016-11-17] MEDS: LACTOBACILLUS RHAMNOSUS GG 1 CAP CAPSULE GT SCH ×2 (08:08→20:51)
[2016-11-17] MEDS: SODIUM BICARBONATE 650 MG TABLET PO SCH ×2 (08:08→20:51)
[2016-11-17] MEDS: CEFEPIME 1 GM in D5W 50 ML IV SCH ×2 (08:11→20:51)
[2016-11-17 08:36] LABS: ATYPICAL LYMPHOCYTES % 0 % (0-0); BAND % (MANUAL) 2 % (0-6); BASOPHILS % (MANUAL) 0 % (0-2); EOSINOPHILS % (MANUAL) 5 % (0-7); LYMPHOCYTES % (MANUAL) 8 % (20-46); MONOCYTES % (MANUAL) 0 % (0-11)
[2016-11-17] MEDS: FLUCONAZOLE 200 mg/ NS 100 ML IV SCH (10:51)
[2016-11-17] MEDS: VANCOMYCIN HCL 500 MG in NS 100 ML IV SCH (11:56)
[2016-11-17] MEDS: BALSAM PERU/CASTOR OIL 60 GM OINT...G. TP SCH (13:30)
[2016-11-18] VITALS (36 sets, daily range): BP systolic 83–125; BP diastolic 42–67; PULSE 74–95; RESP 13–20; TEMP 97.9–99.1; O2SAT 97–100
[2016-11-18] MEDS ORDERED: NOREPINEPHRINE 4 MG/4 ML VIAL IV ONE ×2 (02:05→12:48)
[2016-11-18] MEDS: NOREPINEPHRINE BITARTRATE 4 MG in NS 246 ML IV PRN ×3 (02:23→19:29)
[2016-11-18] MEDS: ALBUTEROL SULFATE 0.083% 2.5 MG/3 ML VIAL.NEB INH SCH ×6 (03:17→23:06)
[2016-11-18] MEDS: INSULIN ASPART 100 UNITS/ML, 10 ML VIAL (NovoLOG) SUBCUT PRN ×4 (05:54→23:35)
[2016-11-18] MEDS: LEVOTHYROXINE SODIUM 0.075 MG TABLET GT SCH (06:10)
[2016-11-18] MEDS: INSULIN NPH 100 UNITS/ML 10 ML VIAL SUBCUT SCH ×2 (06:12→18:06)
[2016-11-18 06:54] LABS: BASOPHILS % (AUTO) 0.8 % (0.0-2.0); EOSINOPHILS # (AUTO) 0.2 K/uL (0.0-0.4); EOSINOPHILS % (AUTO) 3.4 % (0.0-4.0); HEMATOCRIT 25.8 % (36-48); HEMOGLOBIN 8.1 g/dL (12.0-16.0); LYMPHOCYTES # (AUTO) 1.1 K/uL (1.0-5.5); LYMPHOCYTES % (AUTO) 17.4 % (20.5-51.5); MEAN CORPUSCULAR HEMOGLOBIN 28 pg (27-31); MEAN CORPUSCULAR HGB CONC 32 % (32-36); MEAN CORPUSCULAR VOLUME 90 fL (79.0-98.0); MONOCYTES # (AUTO) 0.1 K/uL (0.0-1.0); MONOCYTES % (AUTO) 1.2 % (1.7-9.3); NEUTROPHILS # (AUTO) 4.8 K/uL (1.8-7.7); NEUTROPHILS % (AUTO) 77.2 % (40.0-70.0); RED BLOOD CELL COUNT(AUTO) 2.88 MIL/uL (4.2-6.2)
[2016-11-18 07:17] LABS: ALBUMIN 1.2 g/dL (3.4-4.8); CALCIUM 8.9 mg/dL (8.4-11.0); CREATININE 0.92 mg/dL (0.55-1.30); POTASSIUM 4.6 mmol/L (3.5-5.1); TOTAL BILIRUBIN 0.7 mg/dL (0.0-1.0); TOTAL PROTEIN, SERUM 6.3 g/dL (6.4-8.3)
[2016-11-18 07:47] LABS: PLATELET COUNT (AUTO) 39 K/uL (130-430)
[2016-11-18 07:48] LABS: WHITE BLOOD COUNT (AUTO) 6.2 K/uL (4.8-10.8)
[2016-11-18] MEDS: DOCUSATE SODIUM 100 MG/10 ML UDC GT SCH ×2 (09:00→21:00)
[2016-11-18] MEDS: TEARS ARTIFICIAL 15 ML DROPS OP SCH ×4 (12:17→20:38)
[2016-11-18] MEDS: CEFEPIME 1 GM in D5W 50 ML IV SCH ×2 (12:17→20:37)
[2016-11-18] MEDS: KCL 40 mEq in D5W 1000 mL 1,000 ML IV SCH (12:19)
[2016-11-18] MEDS: LACTOBACILLUS RHAMNOSUS GG 1 CAP CAPSULE GT SCH ×2 (12:26→20:37)
[2016-11-18] MEDS: SODIUM BICARBONATE 650 MG TABLET PO SCH ×2 (12:26→20:37)
[2016-11-18] MEDS: BALSAM PERU/CASTOR OIL 60 GM OINT...G. TP SCH (12:26)
[2016-11-18] MEDS: VANCOMYCIN HCL 500 MG in NS 100 ML IV SCH (12:53)
[2016-11-18] MEDS ORDERED: COMMUNICATION ORDER XX ONE (14:45)
[2016-11-18] MEDS: metroNIDAZOLE 250 mg/NS 50 ML IV SCH (21:08)
[2016-11-19] VITALS (50 sets, daily range): BP systolic 78–131; BP diastolic 42–74; PULSE 79–98; RESP 13–21; TEMP 97.8–99.8; O2SAT 94–100
[2016-11-19] MEDS ORDERED: PIPERACILLIN/TAZOBACTAM 3.375 GM/VIAL (ZOSYN) IV ONE (00:10)
[2016-11-19] MEDS: KCL 40 mEq in D5W 1000 mL 1,000 ML IV SCH ×2 (00:11→11:38)
[2016-11-19] MEDS: NOREPINEPHRINE BITARTRATE 4 MG in NS 246 ML IV PRN ×2 (02:01→09:46)
[2016-11-19] MEDS: ALBUTEROL SULFATE 0.083% 2.5 MG/3 ML VIAL.NEB INH SCH ×6 (04:14→23:45)
[2016-11-19] MEDS: metroNIDAZOLE 250 mg/NS 50 ML IV SCH ×3 (06:17→21:17)
[2016-11-19] MEDS: LEVOTHYROXINE SODIUM 0.075 MG TABLET GT SCH (06:17)
[2016-11-19] MEDS: INSULIN ASPART 100 UNITS/ML, 10 ML VIAL (NovoLOG) SUBCUT PRN ×3 (06:23→17:14)
[2016-11-19] MEDS: INSULIN NPH 100 UNITS/ML 10 ML VIAL SUBCUT SCH ×2 (06:24→16:53)
[2016-11-19] MEDS ORDERED: ACETAMINOPHEN 650 MG/20.3 ML UDC GT PRN (07:00)
[2016-11-19 07:28] LABS: BASOPHILS % (AUTO) 1.2 % (0.0-2.0); EOSINOPHILS # (AUTO) 0.2 K/uL (0.0-0.4); EOSINOPHILS % (AUTO) 6.7 % (0.0-4.0); HEMATOCRIT 27.4 % (36-48); HEMOGLOBIN 8.7 g/dL (12.0-16.0); LYMPHOCYTES # (AUTO) 1.2 K/uL (1.0-5.5); LYMPHOCYTES % (AUTO) 40.1 % (20.5-51.5); MEAN CORPUSCULAR HEMOGLOBIN 29 pg (27-31); MEAN CORPUSCULAR HGB CONC 32 % (32-36); MEAN CORPUSCULAR VOLUME 90 fL (79.0-98.0); MONOCYTES # (AUTO) 0.1 K/uL (0.0-1.0); NEUTROPHILS # (AUTO) 1.5 K/uL (1.8-7.7); PLATELET COUNT (AUTO) 52 K/uL (130-430); RED BLOOD CELL COUNT(AUTO) 3.04 MIL/uL (4.2-6.2); RED CELL DISTRIBUTION WIDTH 17.7 % (9.0-15.0)
[2016-11-19 07:47] LABS: CALCIUM 9.3 mg/dL (8.4-11.0); CREATININE 0.84 mg/dL (0.55-1.30); POTASSIUM 4.9 mmol/L (3.5-5.1)
[2016-11-19] MEDS: SODIUM BICARBONATE 650 MG TABLET PO SCH ×2 (08:30→21:17)
[2016-11-19] MEDS: LACTOBACILLUS RHAMNOSUS GG 1 CAP CAPSULE GT SCH ×2 (08:30→21:17)
[2016-11-19] MEDS: TEARS ARTIFICIAL 15 ML DROPS OP SCH ×4 (08:31→21:18)
[2016-11-19] MEDS: BALSAM PERU/CASTOR OIL 60 GM OINT...G. TP SCH (08:32)
[2016-11-19] MEDS: DOCUSATE SODIUM 100 MG/10 ML UDC GT SCH ×2 (08:33→21:17)
[2016-11-19] MEDS: CEFEPIME 1 GM in D5W 50 ML IV SCH ×2 (08:33→21:18)
[2016-11-19] MEDS: VANCOMYCIN HCL 500 MG in NS 100 ML IV SCH (12:26)
[2016-11-19] MEDS: KCL 20 mEq in 0.45% NS 1000 mL 1,000 ML IV SCH (17:50)
[2016-11-20] VITALS (69 sets, daily range): BP systolic 81–124; BP diastolic 48–76; PULSE 77–116; RESP 14–22; TEMP 97.4–99.9; O2SAT 93–100
[2016-11-20] MEDS ORDERED: NOREPINEPHRINE 4 MG/4 ML VIAL IV ONE ×2 (02:38→10:58)
[2016-11-20] MEDS: ALBUTEROL SULFATE 0.083% 2.5 MG/3 ML VIAL.NEB INH SCH ×6 (04:07→23:38)
[2016-11-20] MEDS: KCL 20 mEq in 0.45% NS 1000 mL 1,000 ML IV SCH ×2 (04:56→17:36)
[2016-11-20] MEDS: metroNIDAZOLE 250 mg/NS 50 ML IV SCH ×3 (05:49→21:11)
[2016-11-20] MEDS: LEVOTHYROXINE SODIUM 0.075 MG TABLET GT SCH (06:39)
[2016-11-20] MEDS: INSULIN NPH 100 UNITS/ML 10 ML VIAL SUBCUT SCH ×2 (06:40→17:00)
[2016-11-20 06:55] LABS: ALBUMIN 1.2 g/dL (3.4-4.8); CALCIUM 9.6 mg/dL (8.4-11.0); CREATININE 0.8 mg/dL (0.55-1.30); POTASSIUM 4.6 mmol/L (3.5-5.1); TOTAL BILIRUBIN 0.4 mg/dL (0.0-1.0); TOTAL PROTEIN, SERUM 7.1 g/dL (6.4-8.3)
[2016-11-20] MEDS: DOCUSATE SODIUM 100 MG/10 ML UDC GT SCH ×2 (08:14→21:00)
[2016-11-20] MEDS: LACTOBACILLUS RHAMNOSUS GG 1 CAP CAPSULE GT SCH ×2 (08:15→21:10)
[2016-11-20] MEDS: SODIUM BICARBONATE 650 MG TABLET PO SCH ×2 (08:16→21:10)
[2016-11-20] MEDS: CEFEPIME 1 GM in D5W 50 ML IV SCH ×2 (08:17→21:10)
[2016-11-20] MEDS: BALSAM PERU/CASTOR OIL 60 GM OINT...G. TP SCH (08:18)
[2016-11-20] MEDS: TEARS ARTIFICIAL 15 ML DROPS OP SCH ×4 (08:19→21:12)
[2016-11-20 10:36] LABS: HEMATOCRIT 23.8 % (36-48); HEMOGLOBIN 8.2 g/dL (12.0-16.0); MEAN CORPUSCULAR HEMOGLOBIN 31 pg (27-31); MEAN CORPUSCULAR HGB CONC 34 % (32-36); MEAN CORPUSCULAR VOLUME 90 fL (79.0-98.0); PLATELET COUNT (AUTO) 158 K/uL (130-430); RED BLOOD CELL COUNT(AUTO) 2.64 MIL/uL (4.2-6.2); WHITE BLOOD COUNT (AUTO) 4.2 K/uL (4.8-10.8)
[2016-11-20] MEDS: NOREPINEPHRINE BITARTRATE 4 MG in NS 246 ML IV PRN ×3 (10:58→21:11)
[2016-11-20 11:23] LABS: BAND % (MANUAL) 3 % (0-6)
[2016-11-20 11:24] LABS: ATYPICAL LYMPHOCYTES % 0 % (0-0); BASOPHILS % (MANUAL) 0 % (0-2); EOSINOPHILS % (MANUAL) 6 % (0-7); LYMPHOCYTES % (MANUAL) 13 % (20-46); MONOCYTES % (MANUAL) 8 % (0-11)
[2016-11-20] MEDS: VANCOMYCIN HCL 500 MG in NS 100 ML IV SCH (11:43)
[2016-11-21] VITALS (55 sets, daily range): BP systolic 81–150; BP diastolic 43–96; PULSE 84–102; RESP 16–33; TEMP 97.2–98.5; O2SAT 95–100
[2016-11-21] MEDS ORDERED: NOREPINEPHRINE 4 MG/4 ML VIAL IV ONE ×3 (01:49→10:58)
[2016-11-21] MEDS: NOREPINEPHRINE BITARTRATE 4 MG in NS 246 ML IV PRN ×2 (01:51→06:19)
[2016-11-21] MEDS: ALBUTEROL SULFATE 0.083% 2.5 MG/3 ML VIAL.NEB INH SCH ×6 (04:14→23:51)
[2016-11-21] MEDS: KCL 20 mEq in 0.45% NS 1000 mL 1,000 ML IV SCH ×3 (06:18→23:54)
[2016-11-21] MEDS: metroNIDAZOLE 250 mg/NS 50 ML IV SCH ×3 (06:19→22:46)
[2016-11-21] MEDS: LEVOTHYROXINE SODIUM 0.075 MG TABLET GT SCH (06:19)
[2016-11-21] MEDS: INSULIN NPH 100 UNITS/ML 10 ML VIAL SUBCUT SCH (06:41)
[2016-11-21 07:09] LABS: CALCIUM 9.2 mg/dL (8.4-11.0); CREATININE 0.77 mg/dL (0.55-1.30); POTASSIUM 4.6 mmol/L (3.5-5.1)
[2016-11-21] MEDS: CEFEPIME 1 GM in D5W 50 ML IV SCH ×2 (09:06→21:06)
[2016-11-21] MEDS: DOCUSATE SODIUM 100 MG/10 ML UDC GT SCH ×2 (09:06→21:02)
[2016-11-21] MEDS: SODIUM BICARBONATE 650 MG TABLET PO SCH ×2 (09:07→21:06)
[2016-11-21] MEDS: BALSAM PERU/CASTOR OIL 60 GM OINT...G. TP SCH (09:07)
[2016-11-21] MEDS: TEARS ARTIFICIAL 15 ML DROPS OP SCH ×4 (09:08→21:07)
[2016-11-21] MEDS: LACTOBACILLUS RHAMNOSUS GG 1 CAP CAPSULE GT SCH ×2 (09:08→21:02)
[2016-11-21] MEDS: VANCOMYCIN HCL 500 MG in NS 100 ML IV SCH (11:11)
[2016-11-21] MEDS: NOREPINEPHRINE BITARTRATE 8 MG in D5W 242 ML IV PRN (22:50)
[2016-11-22] VITALS (36 sets, daily range): BP systolic 71–147; BP diastolic 34–80; PULSE 72–104; RESP 16–22; TEMP 96.6–98.5; O2SAT 98–100
[2016-11-22] MEDS: ALBUTEROL SULFATE 0.083% 2.5 MG/3 ML VIAL.NEB INH SCH ×6 (03:53→23:52)
[2016-11-22] MEDS: metroNIDAZOLE 250 mg/NS 50 ML IV SCH ×3 (06:04→23:16)
[2016-11-22] MEDS: LEVOTHYROXINE SODIUM 0.075 MG TABLET GT SCH (06:05)
[2016-11-22] MEDS: INSULIN ASPART 100 UNITS/ML, 10 ML VIAL (NovoLOG) SUBCUT PRN (06:06)
[2016-11-22 06:29] LABS: HEMATOCRIT 26.6 % (36-48); HEMOGLOBIN 8.4 g/dL (12.0-16.0); MEAN CORPUSCULAR HEMOGLOBIN 30 pg (27-31); MEAN CORPUSCULAR HGB CONC 32 % (32-36); MEAN CORPUSCULAR VOLUME 94 fL (79.0-98.0); PLATELET COUNT (AUTO) 132 K/uL (130-430); RED BLOOD CELL COUNT(AUTO) 2.85 MIL/uL (4.2-6.2); RED CELL DISTRIBUTION WIDTH 18.2 % (9.0-15.0); WHITE BLOOD COUNT (AUTO) 8.6 K/uL (4.8-10.8)
[2016-11-22 06:42] LABS: CALCIUM 9.8 mg/dL (8.4-11.0); CREATININE 0.75 mg/dL (0.55-1.30); POTASSIUM 4.4 mmol/L (3.5-5.1)
[2016-11-22] MEDS: DOCUSATE SODIUM 100 MG/10 ML UDC GT SCH ×2 (09:00→21:00)
[2016-11-22] MEDS: CEFEPIME 1 GM in D5W 50 ML IV SCH (09:38)
[2016-11-22] MEDS: LACTOBACILLUS RHAMNOSUS GG 1 CAP CAPSULE GT SCH ×2 (09:38→21:17)
[2016-11-22] MEDS: SODIUM BICARBONATE 650 MG TABLET PO SCH ×2 (09:39→21:17)
[2016-11-22] MEDS: TEARS ARTIFICIAL 15 ML DROPS OP SCH ×4 (09:39→21:18)
[2016-11-22] MEDS: BALSAM PERU/CASTOR OIL 60 GM OINT...G. TP SCH (09:40)
[2016-11-22] MEDS: VANCOMYCIN HCL 500 MG in NS 100 ML IV SCH (11:50)
[2016-11-22] MEDS: NOREPINEPHRINE BITARTRATE 8 MG in D5W 242 ML IV PRN (13:15)
[2016-11-22 14:38] LABS: ATYPICAL LYMPHOCYTES % 1 % (0-0); BAND % (MANUAL) 10 % (0-6); EOSINOPHILS % (MANUAL) 5 % (0-7)
[2016-11-22 14:39] LABS: BASOPHILS % (MANUAL) 0 % (0-2); METAMYELOCYTES % 2 % (0-0); MYELOCYTES % 3 % (0-0)
[2016-11-22 15:46] LABS: LYMPHOCYTES % (MANUAL) 50 % (20-46)
[2016-11-22 15:47] LABS: MONOCYTES % (MANUAL) 14 % (0-11)
[2016-11-23] VITALS (36 sets, daily range): BP systolic 73–126; BP diastolic 47–80; PULSE 86–112; RESP 16–19; TEMP 97–97.4; O2SAT 90–100
[2016-11-23] MEDS: INSULIN ASPART 100 UNITS/ML, 10 ML VIAL (NovoLOG) SUBCUT PRN ×3 (00:47→23:53)
[2016-11-23] MEDS: ALBUTEROL SULFATE 0.083% 2.5 MG/3 ML VIAL.NEB INH SCH ×6 (03:50→23:46)
[2016-11-23] MEDS: metroNIDAZOLE 250 mg/NS 50 ML IV SCH ×3 (06:30→21:58)
[2016-11-23] MEDS: LEVOTHYROXINE SODIUM 0.075 MG TABLET GT SCH (06:30)
[2016-11-23 06:31] LABS: CALCIUM 9.7 mg/dL (8.4-11.0); CREATININE 0.7 mg/dL (0.55-1.30); POTASSIUM 3.9 mmol/L (3.5-5.1)
[2016-11-23] MEDS: KCL 20 mEq in 0.45% NS 1000 mL 1,000 ML IV SCH (06:34)
[2016-11-23 06:45] LABS: HEMATOCRIT 24.1 % (36-48); HEMOGLOBIN 7.7 g/dL (12.0-16.0); MEAN CORPUSCULAR HEMOGLOBIN 29 pg (27-31); MEAN CORPUSCULAR HGB CONC 32 % (32-36); MEAN CORPUSCULAR VOLUME 92 fL (79.0-98.0); PLATELET COUNT (AUTO) 182 K/uL (130-430); RED BLOOD CELL COUNT(AUTO) 2.63 MIL/uL (4.2-6.2); RED CELL DISTRIBUTION WIDTH 18.1 % (9.0-15.0)
[2016-11-23] MEDS ORDERED: COMMUNICATION ORDER XX ONE (07:00)
[2016-11-23 07:04] LABS: WHITE BLOOD COUNT (AUTO) 27.2 K/uL (4.8-10.8)
[2016-11-23 08:44] LABS: ATYPICAL LYMPHOCYTES % 10 % (0-0); BAND % (MANUAL) 7 % (0-6); BASOPHILS % (MANUAL) 0 % (0-2); CORRECTED WHITE BLOOD COUNT 24.3 K/uL (4.5-11.0); EOSINOPHILS % (MANUAL) 0 % (0-7); LYMPHOCYTES % (MANUAL) 50 % (20-46); MONOCYTES % (MANUAL) 10 % (0-11); MYELOCYTES % 4 % (0-0); PROMYELOCYTES % 5 % (0-0)
[2016-11-23] MEDS: TEARS ARTIFICIAL 15 ML DROPS OP SCH ×4 (09:30→21:14)
[2016-11-23] MEDS: DOCUSATE SODIUM 100 MG/10 ML UDC GT SCH ×2 (09:30→21:13)
[2016-11-23] MEDS: SODIUM BICARBONATE 650 MG TABLET PO SCH ×2 (09:30→21:13)
[2016-11-23] MEDS: LACTOBACILLUS RHAMNOSUS GG 1 CAP CAPSULE GT SCH ×2 (09:30→21:13)
[2016-11-23] MEDS: BALSAM PERU/CASTOR OIL 60 GM OINT...G. TP SCH (09:31)
[2016-11-23] MEDS: VANCOMYCIN HCL 500 MG in NS 100 ML IV SCH (12:12)
[2016-11-23 13:41] LABS: BILIRUBIN,URINE NEGATIVE (NEGATIVE); BLOOD, URINE TRACE (NEGATIVE); CLARITY/URINE CLEAR (CLEAR); COLOR,URINE YELLOW (YELLOW); GLUCOSE,URINE NEGATIVE (NEGATIVE); KETONES,URINE NEGATIVE (NEGATIVE); LEUKOCYTE ESTERASE ,URINE TRACE (NEGATIVE); NITRITE, URINE NEGATIVE (NEGATIVE); PROTEIN URINE 1+ (NEGATIVE); UROBILINOGEN,URINE 0.2 (0.2-1.0)
[2016-11-23 13:47] LABS: RBC,URINE 0-3 /HPF (0-3)
[2016-11-23 13:48] LABS: BACTERIA,URINE FEW /HPF (None Seen); MUCUS,URINE None Seen /LPF (None Seen)
[2016-11-23] MEDS: NOREPINEPHRINE BITARTRATE 8 MG in D5W 242 ML IV PRN (13:57)
[2016-11-23] MEDS: CEFEPIME 1 GM in D5W 50 ML IV SCH (21:14)
[2016-11-23] MEDS ORDERED: metroNIDAZOLE 500 mg/NS 100 ML IV ONE (21:54)
[2016-11-24] VITALS (30 sets, daily range): BP systolic 81–152; BP diastolic 46–94; PULSE 97–112; RESP 16–22; TEMP 97–99.3; O2SAT 90–100
[2016-11-24] MEDS: NOREPINEPHRINE BITARTRATE 8 MG in D5W 242 ML IV PRN ×3 (02:04→20:14)
[2016-11-24] MEDS: ALBUTEROL SULFATE 0.083% 2.5 MG/3 ML VIAL.NEB INH SCH ×5 (03:51→23:29)
[2016-11-24] MEDS: metroNIDAZOLE 250 mg/NS 50 ML IV SCH ×2 (05:54→21:54)
[2016-11-24] MEDS: LEVOTHYROXINE SODIUM 0.075 MG TABLET GT SCH (06:11)
[2016-11-24 07:01] LABS: HEMATOCRIT 26.5 % (36-48); HEMOGLOBIN 8.8 g/dL (12.0-16.0); MEAN CORPUSCULAR HEMOGLOBIN 30 pg (27-31); MEAN CORPUSCULAR HGB CONC 33 % (32-36); MEAN CORPUSCULAR VOLUME 91 fL (79.0-98.0); RED CELL DISTRIBUTION WIDTH 18.6 % (9.0-15.0)
[2016-11-24 07:05] LABS: CREATININE 0.71 mg/dL (0.55-1.30)
[2016-11-24 07:16] LABS: WHITE BLOOD COUNT (AUTO) 57.6 K/uL (4.8-10.8)
[2016-11-24 08:23] LABS: BAND % (MANUAL) 8 % (0-6); BASOPHILS % (MANUAL) 0 % (0-2); BLASTS, MANUAL % 8 % (0-0); EOSINOPHILS % (MANUAL) 0 % (0-7); LYMPHOCYTES % (MANUAL) 8 % (20-46); METAMYELOCYTES % 27 % (0-0); MONOCYTES % (MANUAL) 6 % (0-11); MYELOCYTES % 26 % (0-0); PLATELET COUNT (AUTO) 211 K/uL (130-430)
[2016-11-24 08:24] LABS: CORRECTED WHITE BLOOD COUNT 54.3 K/uL (4.5-11.0)
[2016-11-24] MEDS: DOCUSATE SODIUM 100 MG/10 ML UDC GT SCH (09:00)
[2016-11-24] MEDS: LACTOBACILLUS RHAMNOSUS GG 1 CAP CAPSULE GT SCH ×2 (09:18→21:33)
[2016-11-24] MEDS: SODIUM BICARBONATE 650 MG TABLET PO SCH ×2 (09:18→21:33)
[2016-11-24] MEDS: CEFEPIME 1 GM in D5W 50 ML IV SCH ×2 (09:19→21:34)
[2016-11-24] MEDS: TEARS ARTIFICIAL 15 ML DROPS OP SCH ×4 (09:19→21:40)
[2016-11-24] MEDS: BALSAM PERU/CASTOR OIL 60 GM OINT...G. TP SCH (09:20)
[2016-11-24] MEDS: VANCOMYCIN HCL 500 MG in NS 100 ML IV SCH (12:18)
[2016-11-24] MEDS: INSULIN ASPART 100 UNITS/ML, 10 ML VIAL (NovoLOG) SUBCUT PRN ×2 (12:19→18:19)
[2016-11-24] MEDS: KCL 20 mEq in 0.45% NS 1000 mL 1,000 ML IV SCH (14:21)
[2016-11-24] MEDS: VANCOMYCIN HCL 1,000 MG in NS 250 ML IV SCH (21:35)
[2016-11-25] VITALS (35 sets, daily range): BP systolic 85–126; BP diastolic 51–75; PULSE 89–106; RESP 14–23; TEMP 98.2–100; O2SAT 92–100
[2016-11-25] MEDS: INSULIN ASPART 100 UNITS/ML, 10 ML VIAL (NovoLOG) SUBCUT PRN ×4 (00:19→17:34)
[2016-11-25] MEDS: ALBUTEROL SULFATE 0.083% 2.5 MG/3 ML VIAL.NEB INH SCH ×6 (03:41→23:22)
[2016-11-25] MEDS: NOREPINEPHRINE BITARTRATE 8 MG in D5W 242 ML IV PRN ×2 (05:12→12:46)
[2016-11-25] MEDS: metroNIDAZOLE 250 mg/NS 50 ML IV SCH ×3 (05:13→21:51)
[2016-11-25] MEDS: LEVOTHYROXINE SODIUM 0.075 MG TABLET GT SCH (06:18)
[2016-11-25 06:35] LABS: CREATININE 0.81 mg/dL (0.55-1.30); POTASSIUM 4.1 mmol/L (3.5-5.1)
[2016-11-25 07:40] LABS: HEMATOCRIT 24.8 % (36-48); HEMOGLOBIN 8.4 g/dL (12.0-16.0); MEAN CORPUSCULAR HEMOGLOBIN 31 pg (27-31); MEAN CORPUSCULAR HGB CONC 34 % (32-36); MEAN CORPUSCULAR VOLUME 92 fL (79.0-98.0); PLATELET COUNT (AUTO) 236 K/uL (130-430); RED BLOOD CELL COUNT(AUTO) 2.68 MIL/uL (4.2-6.2)
[2016-11-25] MEDS: TEARS ARTIFICIAL 15 ML DROPS OP SCH ×4 (08:28→21:49)
[2016-11-25] MEDS: BALSAM PERU/CASTOR OIL 60 GM OINT...G. TP SCH (08:29)
[2016-11-25] MEDS: KCL 20 mEq in 0.45% NS 1000 mL 1,000 ML IV SCH (08:29)
[2016-11-25] MEDS: CEFEPIME 1 GM in D5W 50 ML IV SCH ×2 (08:30→21:46)
[2016-11-25] MEDS: LACTOBACILLUS RHAMNOSUS GG 1 CAP CAPSULE GT SCH ×2 (08:30→21:42)
[2016-11-25] MEDS: SODIUM BICARBONATE 650 MG TABLET PO SCH ×2 (08:30→21:50)
[2016-11-25 08:37] LABS: WHITE BLOOD COUNT (AUTO) 89.9 K/uL (4.8-10.8)
[2016-11-25] MEDS: VANCOMYCIN HCL ORAL SOLUTION 250 MG/5 ML, 80 ML GT SCH ×3 (11:04→21:42)
[2016-11-25] MEDS ORDERED: VANCOMYCIN HCL 500 MG in NS 100 ML IV SCH (12:00)
[2016-11-25 12:09] LABS: BAND % (MANUAL) 10 % (0-6); BASOPHILS % (MANUAL) 0 % (0-2); BLASTS, MANUAL % 3 % (0-0); EOSINOPHILS % (MANUAL) 0 % (0-7); LYMPHOCYTES % (MANUAL) 6 % (20-46); METAMYELOCYTES % 20 % (0-0); MONOCYTES % (MANUAL) 5 % (0-11); MYELOCYTES % 10 % (0-0)
[2016-11-25 12:10] LABS: CORRECTED WHITE BLOOD COUNT 78.9 K/uL (4.5-11.0)
[2016-11-25] MEDS ORDERED: VANCOMYCIN HCL 250 MG CAPSULE GT SCH (15:00)
[2016-11-25] MEDS: VANCOMYCIN HCL 1,000 MG in NS 250 ML IV SCH (21:47)
[2016-11-26] VITALS (36 sets, daily range): BP systolic 80–130; BP diastolic 49–91; PULSE 85–157; RESP 12–24; TEMP 97.6–98.2; O2SAT 91–100
[2016-11-26] MEDS: ALBUTEROL SULFATE 0.083% 2.5 MG/3 ML VIAL.NEB INH SCH ×6 (03:58→23:37)
[2016-11-26] MEDS: metroNIDAZOLE 250 mg/NS 50 ML IV SCH ×3 (06:46→21:10)
[2016-11-26] MEDS: LEVOTHYROXINE SODIUM 0.075 MG TABLET GT SCH (06:47)
[2016-11-26 07:00] LABS: HEMATOCRIT 25.5 % (36-48); HEMOGLOBIN 8.8 g/dL (12.0-16.0); MEAN CORPUSCULAR HEMOGLOBIN 32 pg (27-31); MEAN CORPUSCULAR HGB CONC 35 % (32-36); MEAN CORPUSCULAR VOLUME 93 fL (79.0-98.0); PLATELET COUNT (AUTO) 229 K/uL (130-430); RED BLOOD CELL COUNT(AUTO) 2.76 MIL/uL (4.2-6.2); RED CELL DISTRIBUTION WIDTH 18.6 % (9.0-15.0)
[2016-11-26 07:17] LABS: CREATININE 0.78 mg/dL (0.55-1.30); POTASSIUM 4.6 mmol/L (3.5-5.1)
[2016-11-26] MEDS ORDERED: NS 500 ML IV ONE (07:45)
[2016-11-26 08:22] LABS: ATYPICAL LYMPHOCYTES % 0 % (0-0); BAND % (MANUAL) 10 % (0-6); BASOPHILS % (MANUAL) 0 % (0-2); EOSINOPHILS % (MANUAL) 2 % (0-7); LYMPHOCYTES % (MANUAL) 10 % (20-46); METAMYELOCYTES % 23 % (0-0); MONOCYTES % (MANUAL) 7 % (0-11)
[2016-11-26 08:23] LABS: BLASTS, MANUAL % 8 % (0-0); MYELOCYTES % 22 % (0-0)
[2016-11-26] MEDS: VANCOMYCIN HCL ORAL SOLUTION 250 MG/5 ML, 80 ML GT SCH ×3 (09:47→21:09)
[2016-11-26] MEDS: CEFEPIME 1 GM in D5W 50 ML IV SCH ×2 (09:48→20:55)
[2016-11-26] MEDS: SODIUM BICARBONATE 650 MG TABLET PO SCH ×2 (09:48→20:55)
[2016-11-26] MEDS: TEARS ARTIFICIAL 15 ML DROPS OP SCH ×4 (09:48→21:09)
[2016-11-26] MEDS: LACTOBACILLUS RHAMNOSUS GG 1 CAP CAPSULE GT SCH ×2 (09:48→20:55)
[2016-11-26] MEDS: BALSAM PERU/CASTOR OIL 60 GM OINT...G. TP SCH (09:49)
[2016-11-26] MEDS: NOREPINEPHRINE BITARTRATE 8 MG in D5W 242 ML IV PRN (11:01)
[2016-11-26] MEDS: KCL 20 mEq in 0.45% NS 1000 mL 1,000 ML IV SCH (11:02)
[2016-11-26] MEDS: INSULIN ASPART 100 UNITS/ML, 10 ML VIAL (NovoLOG) SUBCUT PRN ×2 (11:13→17:48)
[2016-11-26] MEDS ORDERED: FLUCONAZOLE 200 mg/ NS 100 ML IV ONE (11:30)
[2016-11-26 18:02] LABS: INR 1.6 (0.8-1.2); PROTHROMBIN TIME 17.1 SECS (9.5-12.5)
[2016-11-26] MEDS: VANCOMYCIN HCL 1,000 MG in NS 250 ML IV SCH (21:09)
[2016-11-27] VITALS (45 sets, daily range): BP systolic 80–139; BP diastolic 42–104; PULSE 76–102; RESP 12–26; TEMP 96.9–98.4; O2SAT 91–100
[2016-11-27] MEDS: ALBUTEROL SULFATE 0.083% 2.5 MG/3 ML VIAL.NEB INH SCH ×6 (04:02→23:22)
[2016-11-27] MEDS: NOREPINEPHRINE BITARTRATE 8 MG in D5W 242 ML IV PRN (05:02)
[2016-11-27] MEDS: metroNIDAZOLE 250 mg/NS 50 ML IV SCH ×3 (05:28→21:18)
[2016-11-27] MEDS: LEVOTHYROXINE SODIUM 0.075 MG TABLET GT SCH (06:26)
[2016-11-27 06:43] LABS: CALCIUM 9.6 mg/dL (8.4-11.0); CREATININE 0.59 mg/dL (0.55-1.30); POTASSIUM 3.8 mmol/L (3.5-5.1)
[2016-11-27 07:07] LABS: HEMATOCRIT 22.1 % (36-48); MEAN CORPUSCULAR HEMOGLOBIN 31 pg (27-31); MEAN CORPUSCULAR HGB CONC 33 % (32-36); MEAN CORPUSCULAR VOLUME 93 fL (79.0-98.0); PLATELET COUNT (AUTO) 241 K/uL (130-430); RED BLOOD CELL COUNT(AUTO) 2.39 MIL/uL (4.2-6.2); RED CELL DISTRIBUTION WIDTH 18.8 % (9.0-15.0)
[2016-11-27 07:18] LABS: WHITE BLOOD COUNT (AUTO) 102.6 K/uL (4.8-10.8)
[2016-11-27 07:19] LABS: HEMOGLOBIN 7.3 g/dL (12.0-16.0)
[2016-11-27] MEDS: LACTOBACILLUS RHAMNOSUS GG 1 CAP CAPSULE GT SCH ×2 (08:30→21:15)
[2016-11-27] MEDS: CEFEPIME 1 GM in D5W 50 ML IV SCH ×2 (08:30→21:17)
[2016-11-27] MEDS: VANCOMYCIN HCL ORAL SOLUTION 250 MG/5 ML, 80 ML GT SCH ×3 (08:32→21:15)
[2016-11-27] MEDS: TEARS ARTIFICIAL 15 ML DROPS OP SCH ×4 (08:37→21:18)
[2016-11-27] MEDS: SODIUM BICARBONATE 650 MG TABLET PO SCH ×2 (08:37→21:18)
[2016-11-27] MEDS: BALSAM PERU/CASTOR OIL 60 GM OINT...G. TP SCH (08:38)
[2016-11-27 08:45] LABS: BAND % (MANUAL) 8 % (0-6)
[2016-11-27 08:46] LABS: ATYPICAL LYMPHOCYTES % 2 % (0-0); BASOPHILS % (MANUAL) 0 % (0-2); EOSINOPHILS % (MANUAL) 1 % (0-7); LYMPHOCYTES % (MANUAL) 4 % (20-46); METAMYELOCYTES % 20 % (0-0); MONOCYTES % (MANUAL) 4 % (0-11); MYELOCYTES % 22 % (0-0)
[2016-11-27 08:47] LABS: BLASTS, MANUAL % 6 % (0-0)
[2016-11-27 09:13] LABS: URIC ACID 8.3 mg/dL (2.4-7.0)
[2016-11-27] MEDS: FLUCONAZOLE 200 mg/ NS 100 ML IV SCH (09:31)
[2016-11-27] MEDS: KCL 20 mEq in 0.45% NS 1000 mL 1,000 ML IV SCH ×2 (11:00→17:55)
[2016-11-27] MEDS: VANCOMYCIN HCL 1,000 MG in NS 250 ML IV SCH (21:17)
[2016-11-28] VITALS (34 sets, daily range): BP systolic 82–114; BP diastolic 45–65; PULSE 85–98; RESP 14–23; TEMP 97.2–98.2; O2SAT 92–100
[2016-11-28] MEDS: ALBUTEROL SULFATE 0.083% 2.5 MG/3 ML VIAL.NEB INH SCH ×6 (03:45→23:16)
[2016-11-28] MEDS: metroNIDAZOLE 250 mg/NS 50 ML IV SCH ×3 (05:59→21:08)
[2016-11-28] MEDS: LEVOTHYROXINE SODIUM 0.075 MG TABLET GT SCH (06:12)
[2016-11-28] MEDS: INSULIN ASPART 100 UNITS/ML, 10 ML VIAL (NovoLOG) SUBCUT PRN (06:26)
[2016-11-28 06:33] LABS: HEMATOCRIT 24.6 % (36-48); HEMOGLOBIN 7.9 g/dL (12.0-16.0); MEAN CORPUSCULAR HEMOGLOBIN 30 pg (27-31); MEAN CORPUSCULAR HGB CONC 32 % (32-36); MEAN CORPUSCULAR VOLUME 94 fL (79.0-98.0); PLATELET COUNT (AUTO) 215 K/uL (130-430); RED BLOOD CELL COUNT(AUTO) 2.62 MIL/uL (4.2-6.2); RED CELL DISTRIBUTION WIDTH 19.2 % (9.0-15.0)
[2016-11-28 07:01] LABS: CALCIUM 9.6 mg/dL (8.4-11.0); CREATININE 0.47 mg/dL (0.55-1.30); POTASSIUM 4.1 mmol/L (3.5-5.1)
[2016-11-28 07:13] LABS: WHITE BLOOD COUNT (AUTO) 112.4 K/uL (4.8-10.8)
[2016-11-28 07:22] LABS: BAND % (MANUAL) 10 % (0-6); BASOPHILS % (MANUAL) 0 % (0-2); BLASTS, MANUAL % 12 % (0-0); EOSINOPHILS % (MANUAL) 0 % (0-7); LYMPHOCYTES % (MANUAL) 3 % (20-46); METAMYELOCYTES % 19 % (0-0); MONOCYTES % (MANUAL) 2 % (0-11); MYELOCYTES % 15 % (0-0); PROMYELOCYTES % 9 % (0-0)
[2016-11-28] MEDS: BALSAM PERU/CASTOR OIL 60 GM OINT...G. TP SCH (10:10)
[2016-11-28] MEDS: TEARS ARTIFICIAL 15 ML DROPS OP SCH ×4 (10:10→21:09)
[2016-11-28] MEDS: SODIUM BICARBONATE 650 MG TABLET PO SCH ×2 (10:11→21:08)
[2016-11-28] MEDS: LACTOBACILLUS RHAMNOSUS GG 1 CAP CAPSULE GT SCH ×2 (10:11→21:05)
[2016-11-28] MEDS: CEFEPIME 1 GM in D5W 50 ML IV SCH ×2 (10:15→21:07)
[2016-11-28] MEDS: FLUCONAZOLE 200 mg/ NS 100 ML IV SCH (10:17)
[2016-11-28] MEDS: VANCOMYCIN HCL ORAL SOLUTION 250 MG/5 ML, 80 ML GT SCH ×4 (10:19→21:07)
[2016-11-28] MEDS: NOREPINEPHRINE BITARTRATE 8 MG in D5W 242 ML IV PRN (15:59)
[2016-11-28] MEDS: VANCOMYCIN HCL 1,000 MG in NS 250 ML IV SCH ×2 (21:00→21:08)
[2016-11-29] VITALS (36 sets, daily range): BP systolic 77–147; BP diastolic 43–87; PULSE 76–109; RESP 14–33; TEMP 97.1–98.3; O2SAT 90–99
[2016-11-29] MEDS: INSULIN ASPART 100 UNITS/ML, 10 ML VIAL (NovoLOG) SUBCUT PRN ×2 (00:40→06:13)
[2016-11-29] MEDS: ALBUTEROL SULFATE 0.083% 2.5 MG/3 ML VIAL.NEB INH SCH ×6 (03:27→23:33)
[2016-11-29] MEDS: KCL 20 mEq in 0.45% NS 1000 mL 1,000 ML IV SCH (04:36)
[2016-11-29] MEDS: metroNIDAZOLE 250 mg/NS 50 ML IV SCH ×3 (05:39→21:14)
[2016-11-29] MEDS: LEVOTHYROXINE SODIUM 0.075 MG TABLET GT SCH (06:12)
[2016-11-29] MEDS: SODIUM BICARBONATE 650 MG TABLET PO SCH ×2 (09:46→21:13)
[2016-11-29] MEDS: BALSAM PERU/CASTOR OIL 60 GM OINT...G. TP SCH (09:46)
[2016-11-29] MEDS: LACTOBACILLUS RHAMNOSUS GG 1 CAP CAPSULE GT SCH ×2 (09:46→21:12)
[2016-11-29] MEDS: CEFEPIME 1 GM in D5W 50 ML IV SCH ×2 (09:46→21:14)
[2016-11-29] MEDS: TEARS ARTIFICIAL 15 ML DROPS OP SCH ×4 (09:47→21:15)
[2016-11-29] MEDS: FLUCONAZOLE 200 mg/ NS 100 ML IV SCH (09:54)
[2016-11-29] MEDS: VANCOMYCIN HCL ORAL SOLUTION 250 MG/5 ML, 80 ML GT SCH (09:54)
[2016-11-29] MEDS ORDERED: NS 500 ML IV ONE (16:15)
[2016-11-29] MEDS: NOREPINEPHRINE BITARTRATE 8 MG in D5W 242 ML IV PRN (20:00)
[2016-11-29] MEDS ORDERED: FUROSEMIDE 40 MG/4 ML VIAL IVP ONE (23:30)
[2016-11-29] MEDS ORDERED: FUROSEMIDE 40 MG/4 ML VIAL ONE (23:32)
[2016-11-30] VITALS (36 sets, daily range): BP systolic 85–113; BP diastolic 46–74; PULSE 91–106; RESP 14–38; TEMP 97.2–99.6; O2SAT 92–100
[2016-11-30] MEDS: ALBUTEROL SULFATE 0.083% 2.5 MG/3 ML VIAL.NEB INH SCH ×4 (03:49→20:17)
[2016-11-30] MEDS: metroNIDAZOLE 250 mg/NS 50 ML IV SCH ×3 (05:47→21:38)
[2016-11-30] MEDS: LEVOTHYROXINE SODIUM 0.075 MG TABLET GT SCH (06:12)
[2016-11-30 06:54] LABS: CALCIUM 9.4 mg/dL (8.4-11.0); CREATININE 0.67 mg/dL (0.55-1.30); POTASSIUM 4.1 mmol/L (3.5-5.1)
[2016-11-30] MEDS: KCL 20 mEq in 0.45% NS 1000 mL 1,000 ML IV SCH ×2 (08:00→22:27)
[2016-11-30 08:11] LABS: HEMATOCRIT 22.3 % (36-48); HEMOGLOBIN 7.5 g/dL (12.0-16.0); MEAN CORPUSCULAR HEMOGLOBIN 31 pg (27-31); MEAN CORPUSCULAR HGB CONC 34 % (32-36); MEAN CORPUSCULAR VOLUME 92 fL (79.0-98.0); PLATELET COUNT (AUTO) 302 K/uL (130-430); RED BLOOD CELL COUNT(AUTO) 2.42 MIL/uL (4.2-6.2); RED CELL DISTRIBUTION WIDTH 19.7 % (9.0-15.0)
[2016-11-30 08:15] LABS: WHITE BLOOD COUNT (AUTO) 118.2 K/uL (4.8-10.8)
[2016-11-30] MEDS: CEFEPIME 1 GM in D5W 50 ML IV SCH ×2 (08:36→20:45)
[2016-11-30] MEDS: SODIUM BICARBONATE 650 MG TABLET PO SCH ×2 (08:37→21:38)
[2016-11-30] MEDS: BALSAM PERU/CASTOR OIL 60 GM OINT...G. TP SCH (08:37)
[2016-11-30] MEDS: TEARS ARTIFICIAL 15 ML DROPS OP SCH ×4 (08:37→21:38)
[2016-11-30] MEDS: LACTOBACILLUS RHAMNOSUS GG 1 CAP CAPSULE GT SCH ×2 (08:37→21:37)
[2016-11-30 10:10] LABS: BAND % (MANUAL) 7 % (0-6); BASOPHILS % (MANUAL) 0 % (0-2); EOSINOPHILS % (MANUAL) 0 % (0-7); LYMPHOCYTES % (MANUAL) 2 % (20-46); METAMYELOCYTES % 15 % (0-0); MONOCYTES % (MANUAL) 2 % (0-11); MYELOCYTES % 15 % (0-0)
[2016-11-30 10:11] LABS: BLASTS, MANUAL % 10 % (0-0); PROMYELOCYTES % 6 % (0-0)
[2016-11-30 10:14] LABS: CORRECTED WHITE BLOOD COUNT 107.5 K/uL (4.5-11.0)
[2016-11-30] MEDS: FLUCONAZOLE 200 mg/ NS 100 ML IV SCH (10:16)
[2016-11-30] MEDS: NOREPINEPHRINE BITARTRATE 8 MG in D5W 242 ML IV PRN ×2 (12:31→22:28)
[2016-11-30] MEDS ORDERED: MENTHOL/ZINC OXIDE 113 GM OINT. TP PRN (17:30)
[2016-12-01] VITALS (36 sets, daily range): BP systolic 78–129; BP diastolic 37–89; PULSE 84–106; RESP 14–31; TEMP 98–98.6; O2SAT 94–100
[2016-12-01] MEDS: ALBUTEROL SULFATE 0.083% 2.5 MG/3 ML VIAL.NEB INH SCH ×6 (01:06→23:55)
[2016-12-01] MEDS: metroNIDAZOLE 250 mg/NS 50 ML IV SCH ×3 (05:23→22:42)
[2016-12-01] MEDS: LEVOTHYROXINE SODIUM 0.075 MG TABLET GT SCH (06:07)
[2016-12-01 06:53] LABS: CALCIUM 9.4 mg/dL (8.4-11.0); CREATININE 0.67 mg/dL (0.55-1.30); POTASSIUM 3.9 mmol/L (3.5-5.1)
[2016-12-01 07:08] LABS: BASOPHILS # (AUTO) 0.4 K/uL (0.0-0.2); BASOPHILS % (AUTO) 0.3 % (0.0-2.0); EOSINOPHILS # (AUTO) 0.6 K/uL (0.0-0.4); EOSINOPHILS % (AUTO) 0.5 % (0.0-4.0); LYMPHOCYTES # (AUTO) 5.5 K/uL (1.0-5.5); LYMPHOCYTES % (AUTO) 4.6 % (20.5-51.5); MEAN CORPUSCULAR HEMOGLOBIN 32 pg (27-31); MEAN CORPUSCULAR HGB CONC 34 % (32-36); MONOCYTES # (AUTO) 3.2 K/uL (0.0-1.0); MONOCYTES % (AUTO) 2.7 % (1.7-9.3); NEUTROPHILS # (AUTO) 109.6 K/uL (1.8-7.7); PLATELET COUNT (AUTO) 391 K/uL (130-430)
[2016-12-01] MEDS ORDERED: NOREPINEPHRINE 4 MG/4 ML VIAL IV ONE ×2 (07:47→22:57)
[2016-12-01 07:59] LABS: HEMATOCRIT 22.1 % (36-48); HEMOGLOBIN 7.6 g/dL (12.0-16.0); MEAN CORPUSCULAR VOLUME 94 fL (79.0-98.0); RED BLOOD CELL COUNT(AUTO) 2.35 MIL/uL (4.2-6.2); WHITE BLOOD COUNT (AUTO) 119.3 K/uL (4.8-10.8)
[2016-12-01 08:00] LABS: NEUTROPHILS % (AUTO) 91.9 % (40.0-70.0); RED CELL DISTRIBUTION WIDTH 19.4 % (9.0-15.0)
[2016-12-01 08:04] LABS: BLOOD GAS BASE EXCESS -1.1 mmol/L (-3.0-3.0); BLOOD GAS COHb% 0.7 % (0.5-1.5); BLOOD GAS HHB 7.4 % (0.0-6.0); BLOOD GAS PH 7.354 (7.350-7.450); BLOOD O2Hb% 91.2 % (94.0-97.0)
[2016-12-01] MEDS: LACTOBACILLUS RHAMNOSUS GG 1 CAP CAPSULE GT SCH ×2 (10:04→21:08)
[2016-12-01] MEDS: CEFEPIME 1 GM in D5W 50 ML IV SCH ×2 (10:05→21:09)
[2016-12-01] MEDS: TEARS ARTIFICIAL 15 ML DROPS OP SCH ×4 (10:05→21:09)
[2016-12-01] MEDS: FLUCONAZOLE 200 mg/ NS 100 ML IV SCH (10:05)
[2016-12-01] MEDS: SODIUM BICARBONATE 650 MG TABLET PO SCH ×2 (10:07→21:08)
[2016-12-01] MEDS: BALSAM PERU/CASTOR OIL 60 GM OINT...G. TP SCH (10:08)
[2016-12-01] MEDS: MENTHOL/ZINC OXIDE 113 GM OINT. TP SCH (10:08)
[2016-12-01] MEDS ORDERED: COMMUNICATION ORDER XX ONE (19:30)
[2016-12-01] MEDS: KCL 20 mEq in 0.45% NS 1000 mL 1,000 ML IV SCH (22:43)
[2016-12-01] MEDS: NOREPINEPHRINE BITARTRATE 8 MG in D5W 242 ML IV PRN (23:43)
[2016-12-02] VITALS (35 sets, daily range): BP systolic 80–141; BP diastolic 43–72; PULSE 80–100; RESP 14–24; TEMP 97.1–98; O2SAT 93–100
[2016-12-02] MEDS: ALBUTEROL SULFATE 0.083% 2.5 MG/3 ML VIAL.NEB INH SCH ×6 (04:15→23:30)
[2016-12-02] MEDS: metroNIDAZOLE 250 mg/NS 50 ML IV SCH ×3 (05:16→23:45)
[2016-12-02] MEDS ORDERED: NOREPINEPHRINE 4 MG/4 ML VIAL IV ONE (05:52)
[2016-12-02] MEDS: LEVOTHYROXINE SODIUM 0.075 MG TABLET GT SCH (06:05)
[2016-12-02] MEDS: NOREPINEPHRINE BITARTRATE 8 MG in D5W 242 ML IV PRN (06:05)
[2016-12-02] MEDS: MENTHOL/ZINC OXIDE 113 GM OINT. TP SCH (08:19)
[2016-12-02] MEDS: BALSAM PERU/CASTOR OIL 60 GM OINT...G. TP SCH (09:00)
[2016-12-02] MEDS: LACTOBACILLUS RHAMNOSUS GG 1 CAP CAPSULE GT SCH ×2 (09:10→21:20)
[2016-12-02] MEDS: SODIUM BICARBONATE 650 MG TABLET PO SCH ×2 (09:10→21:21)
[2016-12-02] MEDS: TEARS ARTIFICIAL 15 ML DROPS OP SCH ×4 (09:10→21:21)
[2016-12-02] MEDS: FLUCONAZOLE 200 mg/ NS 100 ML IV SCH (09:11)
[2016-12-02] MEDS: CEFEPIME 1 GM in D5W 50 ML IV SCH ×2 (09:11→21:20)
[2016-12-02] MEDS ORDERED: D5/0.45 NS 500 ML IV ONE (11:15)
[2016-12-02] MEDS ORDERED: 0.45% NACL 1,000 ML IV SCH (12:00)
[2016-12-02] MEDS: D5/0.45 NS 1,000 ML IV SCH (13:13)
[2016-12-02] MEDS: FAMOTIDINE 20 MG TABLET PO SCH (21:20)
[2016-12-03] VITALS (32 sets, daily range): BP systolic 76–131; BP diastolic 39–64; PULSE 68–113; RESP 14–29; TEMP 96.9–98.8; O2SAT 94–100
[2016-12-03] MEDS: ALBUTEROL SULFATE 0.083% 2.5 MG/3 ML VIAL.NEB INH SCH ×6 (03:55→23:15)
[2016-12-03] MEDS: NOREPINEPHRINE BITARTRATE 8 MG in D5W 242 ML IV PRN (04:29)
[2016-12-03] MEDS: metroNIDAZOLE 250 mg/NS 50 ML IV SCH ×3 (06:18→23:22)
[2016-12-03] MEDS: LEVOTHYROXINE SODIUM 0.075 MG TABLET GT SCH (06:18)
[2016-12-03] MEDS: INSULIN ASPART 100 UNITS/ML, 10 ML VIAL (NovoLOG) SUBCUT PRN ×2 (06:36→12:13)
[2016-12-03 06:49] LABS: CALCIUM 9.2 mg/dL (8.4-11.0); CREATININE 0.57 mg/dL (0.55-1.30); POTASSIUM 3.2 mmol/L (3.5-5.1)
[2016-12-03 07:28] LABS: MEAN CORPUSCULAR HEMOGLOBIN 30 pg (27-31); MEAN CORPUSCULAR HGB CONC 32 % (32-36); MEAN CORPUSCULAR VOLUME 96 fL (79.0-98.0); PLATELET COUNT (AUTO) 297 K/uL (130-430); RED BLOOD CELL COUNT(AUTO) 2.24 MIL/uL (4.2-6.2); RED CELL DISTRIBUTION WIDTH 19.9 % (9.0-15.0)
[2016-12-03 07:44] LABS: HEMATOCRIT 21.5 % (36-48); HEMOGLOBIN 6.8 g/dL (12.0-16.0); WHITE BLOOD COUNT (AUTO) 92.5 K/uL (4.8-10.8)
[2016-12-03] MEDS: D5/0.45 NS 1,000 ML IV SCH (08:06)
[2016-12-03] MEDS: FAMOTIDINE 20 MG TABLET PO SCH ×2 (08:07→20:23)
[2016-12-03] MEDS: CEFEPIME 1 GM in D5W 50 ML IV SCH ×2 (08:07→20:24)
[2016-12-03] MEDS: TEARS ARTIFICIAL 15 ML DROPS OP SCH ×4 (08:07→20:25)
[2016-12-03] MEDS: LACTOBACILLUS RHAMNOSUS GG 1 CAP CAPSULE GT SCH ×2 (08:07→20:24)
[2016-12-03] MEDS: SODIUM BICARBONATE 650 MG TABLET PO SCH ×2 (08:07→20:24)
[2016-12-03] MEDS: BALSAM PERU/CASTOR OIL 60 GM OINT...G. TP SCH (08:08)
[2016-12-03] MEDS: MENTHOL/ZINC OXIDE 113 GM OINT. TP SCH (08:08)
[2016-12-03 08:55] LABS: BAND % (MANUAL) 10 % (0-6); BASOPHILS % (MANUAL) 0 % (0-2); CORRECTED WHITE BLOOD COUNT 75.2 K/uL (4.5-11.0); EOSINOPHILS % (MANUAL) 0 % (0-7); LYMPHOCYTES % (MANUAL) 5 % (20-46); METAMYELOCYTES % 4 % (0-0); MONOCYTES % (MANUAL) 1 % (0-11); MYELOCYTES % 4 % (0-0)
[2016-12-03 08:56] LABS: BLASTS, MANUAL % 3 % (0-0)
[2016-12-03] MEDS ORDERED: POTASSIUM CHLORIDE 20 MEQ/PKT PACKET GT ONE (15:00)
[2016-12-04] VITALS (36 sets, daily range): BP systolic 90–129; BP diastolic 37–70; PULSE 81–115; RESP 14–38; TEMP 96.7–97.6; O2SAT 93–100
[2016-12-04] MEDS: ALBUTEROL SULFATE 0.083% 2.5 MG/3 ML VIAL.NEB INH SCH ×6 (04:00→23:14)
[2016-12-04] MEDS: NOREPINEPHRINE BITARTRATE 8 MG in D5W 242 ML IV PRN (05:18)
[2016-12-04] MEDS: metroNIDAZOLE 250 mg/NS 50 ML IV SCH ×3 (05:55→21:50)
[2016-12-04] MEDS: D5/0.45 NS 1,000 ML IV SCH (05:57)
[2016-12-04] MEDS: LEVOTHYROXINE SODIUM 0.075 MG TABLET GT SCH (06:05)
[2016-12-04] MEDS: LACTOBACILLUS RHAMNOSUS GG 1 CAP CAPSULE GT SCH ×2 (09:05→21:05)
[2016-12-04] MEDS: FAMOTIDINE 20 MG TABLET PO SCH ×2 (09:05→21:05)
[2016-12-04] MEDS: CEFEPIME 1 GM in D5W 50 ML IV SCH ×2 (09:05→21:06)
[2016-12-04] MEDS: TEARS ARTIFICIAL 15 ML DROPS OP SCH ×4 (09:05→21:31)
[2016-12-04] MEDS: SODIUM BICARBONATE 650 MG TABLET PO SCH ×2 (09:06→21:05)
[2016-12-04] MEDS: MENTHOL/ZINC OXIDE 113 GM OINT. TP SCH (09:07)
[2016-12-04] MEDS: BALSAM PERU/CASTOR OIL 60 GM OINT...G. TP SCH (09:07)
[2016-12-05] VITALS (25 sets, daily range): BP systolic 67–133; BP diastolic 39–69; PULSE 77–108; RESP 14–35; TEMP 97.3–98.9; O2SAT 94–100
[2016-12-05] MEDS ORDERED: KCL 40 mEq in 100 mL (PREMIX) 0 ML IV ONE (01:14)
[2016-12-05] MEDS: ALBUTEROL SULFATE 0.083% 2.5 MG/3 ML VIAL.NEB INH SCH ×5 (03:58→23:38)
[2016-12-05] MEDS: metroNIDAZOLE 250 mg/NS 50 ML IV SCH ×3 (06:06→22:03)
[2016-12-05] MEDS: LEVOTHYROXINE SODIUM 0.075 MG TABLET GT SCH (06:06)
[2016-12-05] MEDS: FAMOTIDINE 20 MG TABLET PO SCH ×2 (08:14→21:10)
[2016-12-05] MEDS: SODIUM BICARBONATE 650 MG TABLET PO SCH ×2 (08:14→21:10)
[2016-12-05] MEDS: LACTOBACILLUS RHAMNOSUS GG 1 CAP CAPSULE GT SCH ×2 (08:14→21:10)
[2016-12-05] MEDS: CEFEPIME 1 GM in D5W 50 ML IV SCH ×2 (08:14→21:10)
[2016-12-05] MEDS: TEARS ARTIFICIAL 15 ML DROPS OP SCH ×3 (08:14→17:21)
[2016-12-05] MEDS: MENTHOL/ZINC OXIDE 113 GM OINT. TP SCH (08:15)
[2016-12-05] MEDS: BALSAM PERU/CASTOR OIL 60 GM OINT...G. TP SCH (08:15)
[2016-12-05] MEDS: D5/0.45 NS 1,000 ML IV SCH (12:54)
[2016-12-05] MEDS: NOREPINEPHRINE BITARTRATE 8 MG in D5W 242 ML IV PRN (12:56)
[2016-12-05] MEDS: MINERAL OIL/PETROLATUM,WHITE 3.5 GM EYE OINT. OP SCH (21:00)
[2016-12-06] VITALS (35 sets, daily range): BP systolic 73–185; BP diastolic 38–108; PULSE 88–111; RESP 14–35; TEMP 96.1–98.6; O2SAT 93–100
[2016-12-06] MEDS: NOREPINEPHRINE BITARTRATE 8 MG in D5W 242 ML IV PRN ×2 (05:11→13:50)
[2016-12-06] MEDS: metroNIDAZOLE 250 mg/NS 50 ML IV SCH ×3 (05:30→22:17)
[2016-12-06] MEDS: LEVOTHYROXINE SODIUM 0.075 MG TABLET GT SCH (06:23)
[2016-12-06] MEDS: ALBUTEROL SULFATE 0.083% 2.5 MG/3 ML VIAL.NEB INH SCH ×5 (07:37→23:12)
[2016-12-06] MEDS: SODIUM BICARBONATE 650 MG TABLET PO SCH ×2 (08:24→20:44)
[2016-12-06] MEDS: FAMOTIDINE 20 MG TABLET PO SCH ×2 (08:24→20:44)
[2016-12-06] MEDS: CEFEPIME 1 GM in D5W 50 ML IV SCH ×2 (08:24→20:43)
[2016-12-06] MEDS: MENTHOL/ZINC OXIDE 113 GM OINT. TP SCH (08:25)
[2016-12-06] MEDS: BALSAM PERU/CASTOR OIL 60 GM OINT...G. TP SCH (08:26)
[2016-12-06] MEDS: LACTOBACILLUS RHAMNOSUS GG 1 CAP CAPSULE GT SCH ×2 (08:26→20:44)
[2016-12-06] MEDS: INSULIN ASPART 100 UNITS/ML, 10 ML VIAL (NovoLOG) SUBCUT PRN (12:21)
[2016-12-06] MEDS: D5/0.45 NS 1,000 ML IV SCH ×2 (12:21→20:44)
[2016-12-06] MEDS: MINERAL OIL/PETROLATUM,WHITE 3.5 GM EYE OINT. OP SCH (21:00)
[2016-12-07] VITALS (35 sets, daily range): BP systolic 57–93; BP diastolic 29–63; PULSE 93–107; RESP 14–27; TEMP 97.3–97.9; O2SAT 93–100
[2016-12-07] MEDS: NOREPINEPHRINE BITARTRATE 8 MG in D5W 242 ML IV PRN ×4 (01:09→22:44)
[2016-12-07] MEDS: LEVOTHYROXINE SODIUM 0.075 MG TABLET GT SCH (06:04)
[2016-12-07] MEDS: metroNIDAZOLE 250 mg/NS 50 ML IV SCH ×3 (06:05→21:31)
[2016-12-07] MEDS: ALBUTEROL SULFATE 0.083% 2.5 MG/3 ML VIAL.NEB INH SCH ×5 (07:42→23:46)
[2016-12-07] MEDS ORDERED: NOREPINEPHRINE 4 MG/4 ML VIAL IV ONE (08:58)
[2016-12-07] MEDS: LACTOBACILLUS RHAMNOSUS GG 1 CAP CAPSULE GT SCH ×2 (11:09→21:32)
[2016-12-07] MEDS: FAMOTIDINE 20 MG TABLET PO SCH ×2 (11:10→21:30)
[2016-12-07] MEDS: SODIUM BICARBONATE 650 MG TABLET PO SCH ×2 (11:10→21:31)
[2016-12-07] MEDS: CEFEPIME 1 GM in D5W 50 ML IV SCH ×2 (11:10→21:31)
[2016-12-07] MEDS: D5/0.45 NS 1,000 ML IV SCH (14:27)
[2016-12-07] MEDS: MENTHOL/ZINC OXIDE 113 GM OINT. TP SCH (18:50)
[2016-12-07] MEDS: BALSAM PERU/CASTOR OIL 60 GM OINT...G. TP SCH (18:51)
[2016-12-07] MEDS: MINERAL OIL/PETROLATUM,WHITE 3.5 GM EYE OINT. OP SCH (21:00)
[2016-12-08] VITALS (34 sets, daily range): BP systolic 49–68; BP diastolic 27–49; PULSE 92–109; RESP 12–23; TEMP 96.8–98.4; O2SAT 90–99
[2016-12-08] MEDS: NOREPINEPHRINE BITARTRATE 8 MG in D5W 242 ML IV PRN ×3 (01:56→08:46)
[2016-12-08] MEDS: ALBUTEROL SULFATE 0.083% 2.5 MG/3 ML VIAL.NEB INH SCH ×6 (02:46→23:12)
[2016-12-08] MEDS: metroNIDAZOLE 250 mg/NS 50 ML IV SCH (05:24)
[2016-12-08] MEDS: LEVOTHYROXINE SODIUM 0.075 MG TABLET GT SCH (06:22)
[2016-12-08] MEDS: FAMOTIDINE 20 MG TABLET PO SCH ×2 (08:34→21:08)
[2016-12-08] MEDS: CEFEPIME 1 GM in D5W 50 ML IV SCH ×2 (08:34→21:07)
[2016-12-08] MEDS: SODIUM BICARBONATE 650 MG TABLET PO SCH ×2 (08:34→21:08)
[2016-12-08] MEDS: LACTOBACILLUS RHAMNOSUS GG 1 CAP CAPSULE GT SCH ×2 (08:34→21:07)
[2016-12-08] MEDS: MENTHOL/ZINC OXIDE 113 GM OINT. TP SCH (08:35)
[2016-12-08] MEDS: BALSAM PERU/CASTOR OIL 60 GM OINT...G. TP SCH (08:35)
[2016-12-08] MEDS: D5/0.45 NS 1,000 ML IV SCH (12:01)
[2016-12-08] MEDS: NOREPINEPHRINE BITARTRATE 16 MG in NS 234 ML IV PRN ×2 (12:01→21:09)
[2016-12-08] MEDS: MINERAL OIL/PETROLATUM,WHITE 3.5 GM EYE OINT. OP SCH (21:00)
[2016-12-09] VITALS (10 sets, daily range): BP systolic 48–62; BP diastolic 25–37; PULSE 68–135; RESP 12–17; TEMP 97.1–97.4; O2SAT 93–97
[2016-12-09] MEDS: ALBUTEROL SULFATE 0.083% 2.5 MG/3 ML VIAL.NEB INH SCH (03:04)
[2016-12-09] MEDS: D5/0.45 NS 1,000 ML IV SCH (05:30)
[2016-12-09] MEDS: NOREPINEPHRINE BITARTRATE 16 MG in NS 234 ML IV PRN (05:31)
[2016-12-09] MEDS: LEVOTHYROXINE SODIUM 0.075 MG TABLET GT SCH (06:17)
== END 2016-12-09 12:34 | disposition expired | DRG 720 ==
LOC: SED 02:20 → SIC 05:53
PROVIDERS: ADMIT Internal Medicine; ATTEND Internal Medicine
PROC: 02HV33Z Insertion of Infusion Device into Superior Vena Cava, Percutaneous Approach (ICD-10-PCS; principal; 2016-11-10)
PROC: 5A1955Z Respiratory Ventilation, Greater than 96 Consecutive Hours (ICD-10-PCS; 2016-11-10)
PROC: B548ZZA Ultrasonography of Superior Vena Cava, Guidance (ICD-10-PCS; 2016-11-10)
PROC: 30233N1 Transfusion of Nonautologous Red Blood Cells into Peripheral Vein, Percutaneous Approach (ICD-10-PCS; 2016-11-13)
DX: A41.9 Sepsis, unspecified organism (principal); J96.20 Acute and chronic respiratory failure, unspecified whether with hypoxia or hypercapnia; N17.0 Acute kidney failure with tubular necrosis; J69.0 Pneumonitis due to inhalation of food and vomit; R65.21 Severe sepsis with septic shock; G93.40 Encephalopathy, unspecified; Z99.11 Dependence on respirator [ventilator] status; E43 Unspecified severe protein-calorie malnutrition; Z93.0 Tracheostomy status; E86.1 Hypovolemia; E87.0 Hyperosmolality and hypernatremia; F03.90 Unspecified dementia, unspecified severity, without behavioral disturbance, psychotic disturbance, mood disturbance, and anxiety; E11.65 Type 2 diabetes mellitus with hyperglycemia; E03.9 Hypothyroidism, unspecified; G40.909 Epilepsy, unspecified, not intractable, without status epilepticus; G80.9 Cerebral palsy, unspecified; D69.6 Thrombocytopenia, unspecified; D64.9 Anemia, unspecified; B37.0 Candidal stomatitis; B37.49 Other urogenital candidiasis; C95.00 Acute leukemia of unspecified cell type not having achieved remission; E87.1 Hypo-osmolality and hyponatremia; E87.6 Hypokalemia; I50.9 Heart failure, unspecified; L89.90 Pressure ulcer of unspecified site, unspecified stage; Z16.24 Resistance to multiple antibiotics; Z66 Do not resuscitate; I11.0 Hypertensive heart disease with heart failure; J44.9 Chronic obstructive pulmonary disease, unspecified; Z86.73 Personal history of transient ischemic attack (TIA), and cerebral infarction without residual deficits; Z93.1 Gastrostomy status; Z90.49 Acquired absence of other specified parts of digestive tract; Z86.74 Personal history of sudden cardiac arrest; Z68.23 Body mass index [BMI] 23.0-23.9, adult; Z51.5 Encounter for palliative care
CPT/HCPCS: 36415; 36600; 71010; 80048; 80053; 80202-TC; 81000-TC; 82533; 82803-TC; 82962; 83010; 83036; 83605; 83615-TC; 83735-TC; 83880; 84100-TC; 84132-TC; 84439; 84443-TC; 84484; 84550-TC; 85007; 85025; 85027; 85044-TC; 85384-TC; 85610-TC; 85730-TC; 86886; 86900; 86901; 86920; 87040-TC; 87070-TC; 87081; 87086; 87186-TC; 87205-TC; 87230-TC; 93005; 94003; 94640; 96361; 96365; 96375; 99285; C1769; C9113; J0692; J0696; J1450; J1644; J1650; J1815; J1940; J2270; J2543; J3370; J3480; J3490; J7030; J7040; J7050; J7060; P9021